=== PATIENT | female | born 1985 | race Caucasian/White ===

== ENCOUNTER 2016-07-28 20:22 | Emergency (ER) | payer MEDICAID ==
[2016-07-28] MEDS ORDERED: AMOXIL 500 MG PO ONE (21:37)
[2016-07-28] MEDS ORDERED: AMOXIL 500 MG ONE (21:41)
--- NOTE | 2016-07-28 21:41 | ERPHSYRPT ---
- History of Present Illness Time Seen by Provider: 07/28/16 21:31 Source: patient Physician History: CC: sore throat Hx: Sore throat, worse on right, red. No fever. Hurts to swallow. She was on bactrim for skin infections but had to stop due to hives. She has an infected finger still on right. She has hx of strep throat. LMP- depo provera. No meds. She is a smoker and is interested in quitting. Severity: moderate ENT Location: throat Allergies/Adverse Reactions: No Known Drug Allergies Allergy (Verified 02/20/16 12:00) Home Medications: Amoxicillin 1 mg PO BID 02/29/16 [History] - Review of Systems Constitutional: No Fever, No Chills Eyes: No Symptoms Ears, Nose, & Throat: Throat Pain Respiratory: No Cough Abdominal/Gastrointestinal: No Vomiting, No Diarrhea Skin: No Rash - Past Medical History Pertinent Past Medical History: Yes (skin infections) - Social History Smoking Status: Current every day smoker Exposure to second hand smoke: No - Physical Exam General Appearance: alert Eye Exam: bilateral eye: PERRL, EOMI Ear Exam: bilateral ear: TM normal Nasal Exam: normal inspection Throat Exam: moist mucus membranes (red throat), No pharynx swelling, No tonsillar exudate Neck Exam: normal inspection, non-tender, supple Cardiovascular/Respiratory Exam: normal breath sounds, regular rate/rhythm Neurologic Exam: alert, oriented x 3, cooperative Skin Exam: warm, dry, No rash - Course Nursing assessment & vital signs reviewed: Yes - Progress Progress Note: 07/28/16 21:39 She chose empiric abtx for pharyngitis. She wants to stop smoking and RT gave information packet. Counseled pt/family regarding: diagnosis, need for follow-up - Departure Time of Disposition: 21:40 Departure Disposition: Home Clinical Impression: Acute pharyngitis, Smoker Condition: Stable Critical Care Time: No Referrals: MERON HARTMAN [Primary Care Provider] - Instructions: Pharyngitis/Tonsillopharyngitis -- Adult, Quit Smoking Additional Instructions: SORE THROAT 1. If you are prescribed antibiotics, you should finish the entire prescription as directed. 2. Many sore throats are caused by viruses and antibiotics will not help. 3. Acetaminophen or Ibuprofen as directed for fever or discomfort. 4. Cool liquids may help the pain of sore throat. Rx amoxil for 10 days. Follow up wit Dr hartman monday. Prescriptions: Amoxicillin [Amoxil] 1 cap PO TID #29 capsule
[2016-07-28 21:45] VITALS: O2SAT 98
[2016-07-28 22:15] VITALS: BP 134/82; PULSE 84
== END 2016-07-28 22:15 | disposition home or self-care (01) ==
LOC: ED 20:22
DX: J02.9 Acute pharyngitis, unspecified (principal); F17.200 Nicotine dependence, unspecified, uncomplicated
CPT/HCPCS: 99282; 99283; A9270-GY

== ENCOUNTER 2016-11-20 03:04 | Emergency (ER) | payer MEDICAID ==
[2016-11-20] MEDS ORDERED: Pepcid 20 MG VIAL IV ONE ×2 (03:24→03:52)
[2016-11-20] MEDS ORDERED: BENADRYL 50 MG/ML IV ONE ×2 (03:24→04:43)
[2016-11-20] MEDS ORDERED: Hydromorphone 1 mg/ml Ampule IV ONE ×2 (03:24→04:43)
[2016-11-20] MEDS ORDERED: Sodium Chloride 0.9% 1000 ML 1,000 ML IV STA (03:24)
--- NOTE | 2016-11-20 03:29 | ERPHSYRPT ---
- History of Present Illness Time Seen by Provider: 11/20/16 03:20 Historian: patient Patient Subjective Stated Complaint: pt states she woke up with pain from epigastric into her back. states the pain in her back feels like spasming Triage Nursing Assessment: pt alert and oriented, answers questions approp. pt ambualtory with steady gait noted. respirations nonlabored with lungs cta. abd soft and tender with bowel sounds noted. back nontender. Physician History: CC: abd pain hx: 31 y/o patient of Dr Nicole on Depo Provera. She has upper abd pain, severe , radiating to her back. She had a similar pain 2 weeks ago after eating chili beans. Tonite did not eat. Pain severe. She had prior C/S and appendectomy. Allergic to sulfa. Pain sharp, severe. Some nausea last time but not yet tonite. Allergies/Adverse Reactions: sulfamethoxazole [From Bactrim] Allergy (Verified 11/20/16 03:26) trimethoprim [From Bactrim] Allergy (Verified 11/20/16 03:26) Hx Tetanus, Diphtheria Vaccination/Date Given: Yes Hx Influenza Vaccination/Date Given: Yes Hx Pneumococcal Vaccination/Date Given: No Immunizations Up to Date: Yes - Review of Systems Constitutional: Malaise, Weakness, No Fever, No Chills Eyes: No Symptoms Ears, Nose, & Throat: No Symptoms Respiratory: No Cough, No Dyspnea Cardiac: No Chest Pain Abdominal/Gastrointestinal: Abdominal Pain, No Nausea, No Vomiting, No Diarrhea Genitourinary Symptoms: No Dysuria Skin: No Rash Neurological: No Headache All Other Systems: Reviewed and Negative - Past Medical History Pertinent Past Medical History: Yes (skin infections) GI Medical History: GERD - Past Surgical History Past Surgical History: Yes Gastrointestinal: Appendectomy Female Surgical History: Section - Social History Smoking Status: Current every day smoker How long have you smoked: 7 Exposure to second hand smoke: Yes Drug Use: none Patient Lives Alone: No - Female History Hx Last Menstrual Period: 2 mos - Nursing Vital Signs Nursing Vital Signs: Initial Vital Signs Temperature 97.7 F 11/20/16 03:11 Pulse Rate 103 H 11/20/16 03:11 Respiratory Rate 18 11/20/16 03:11 Blood Pressure 121/71 11/20/16 03:11 Pain Scale Pain Intensity [] 10 Pain Intensity 0 - Physical Exam General Appearance: alert, obese, other (tearful) Eye Exam: PERRL/EOMI, No scleral icterus Ears, Nose, Throat Exam: normal ENT inspection, moist mucous membranes Neck Exam: normal inspection, non-tender, supple Respiratory Exam: normal breath sounds Cardiovascular Exam: regular rate/rhythm Gastrointestinal/Abdomen Exam: soft, tenderness (severe RUQ with caal's sign, epigastric tender), guarding, No mass Back Exam: normal inspection, No CVA tenderness Extremity Exam: normal inspection, normal range of motion Neurologic Exam: alert, oriented x 3, cooperative, sensation nml, No motor deficits Skin Exam: warm, dry, No rash Oxygen Delivery: Room Air - Course Nursing assessment & vital signs reviewed: Yes - Radiology Exams AAS X-ray Interpretation: Reviewed by me, Negative Ordered Tests: Active Orders 24 hr Category Date Time Status IV Insertion STAT Care 11/20/16 03:24 Active OBSTR/ACUTE ABDOMEN SERIES Stat Exams 11/20/16 03:25 Ordered CBC W DIFF Stat Lab 11/20/16 03:47 Completed CMP Stat Lab 11/20/16 03:47 Completed HCG QUALITATIVE,SERUM Stat Lab 11/20/16 03:47 Completed LIPASE Stat Lab 11/20/16 03:47 Completed Medication Summary Discontinued Medications Generic Name Dose Route Start Last Admin Trade Name Freq PRN Reason Stop Dose Admin Diphenhydramine HCl 25 mg 11/20/16 03:24 11/20/16 03:55 Benadryl 50 Mg/Ml IV 11/20/16 03:25 25 mg STAT ONE Administration Diphenhydramine HCl Confirm 11/20/16 03:52 Benadryl 50 Mg/Ml Administered 11/20/16 03:53 Dose 50 mg .ROUTE .STK-MED ONE Diphenhydramine HCl 25 mg 11/20/16 04:43 Benadryl 50 Mg/Ml IV 11/20/16 04:44 STAT ONE Famotidine 20 mg 11/20/16 03:24 11/20/16 04:00 Pepcid 20 Mg Vial IV 11/20/16 03:25 20 mg STAT ONE Administration Famotidine Confirm 11/20/16 03:52 Pepcid 20 Mg Vial Administered 11/20/16 03:53 Dose 20 mg IV .STK-MED ONE Hydromorphone HCl 1 mg 11/20/16 03:24 11/20/16 03:55 Hydromorphone 1 Mg/Ml Ampule IV 11/20/16 03:25 1 mg STAT ONE Administration Hydromorphone HCl Confirm 11/20/16 03:52 Hydromorphone 1 Mg/Ml Ampule Administered 11/20/16 03:53 Dose 1 mg .ROUTE .STK-MED ONE Hydromorphone HCl 1 mg 11/20/16 04:43 Hydromorphone 1 Mg/Ml Ampule IV 11/20/16 04:44 STAT ONE Sodium Chloride 1,000 mls @ 999 mls/hr 11/20/16 03:24 11/20/16 03:55 Sodium Chloride 0.9% 1000 Ml IV 11/20/16 04:24 999 mls/hr .Q1H1M STA Administration Sodium Chloride Confirm 11/20/16 03:53 Sodium Chloride 0.9% 1000 Ml Administered 11/20/16 03:54 Dose 1,000 mls @ ud .ROUTE .STK-MED ONE Lab/Rad Data: Laboratory Result Diagrams 11/20/16 03:47 11/20/16 03:47 Laboratory Results 11/20/16 11/20/16 11/20/16 Range/Units 03:47 03:47 03:47 WBC 9.3 (4.0-10.5) K/mm3 RBC 4.76 (4.1-5.4) M/mm3 Hgb 11.5 L (12.0-16.0) gm/dl Hct 37.6 (35-47) % MCV 79.0 (78-100) fl MCH 24.1 L (26-32) pg MCHC 30.6 L (32-36) g/dl RDW 15.3 H (11.5-14.0) % Plt Count 294 (150-450) K/mm3 MPV 10.7 H (6-9.5) fl Gran % 60.3 (36.0-66.0) % Lymphocytes % 26.9 (24.0-44.0) % Monocytes % 6.3 (0.0-12.0) % Eosinophils % 6.0 H (0.00-5.0) % Basophils % 0.5 (0.0-0.4) % Basophils # 0.05 (0-0.4) Sodium 144 (136-145) mEq/L Potassium 3.7 (3.5-5.1) mEq/L Chloride 108 H (98-107) mEq/L Carbon Dioxide 25.3 (21-32) mEq/L Anion Gap 14.8 (5-15) MEQ/L BUN 10 (9-20) mg/dL Creatinine 0.76 (0.55-1.30) mg/dl Estimated GFR > 60 ML/MIN Glucose 103 (70-110) MG/DL Calcium 8.9 (8.5-10.1) mg/dL Total Bilirubin 0.40 (0.2-1.0) mg/dL AST 11 L (15-37) U/L ALT 11 L (12-78) U/L Alkaline Phosphatase 75 (46-116) U/L Serum Total Protein 6.9 (6.4-8.2) gm/dL Albumin 3.2 L (3.4-5.0) g/dL Lipase 125 (73-393) U/L Serum , Qual NEGATIVE (Negative) - Progress Progress Note: 11/20/16 04:47 The patient is improved with meds. This is almost certainly billiary colic. Will release with instr. No sign of acute cholecysitis on labs, no fever. Advised follow up tomorrow to arrange GC sonogram. Counseled pt/family regarding: lab results, diagnosis, need for follow-up, rad results - Departure Time of Disposition: 04:48 Departure Disposition: Home Clinical Impression: Biliary colic, RUQ abdominal pain Condition: Stable Critical Care Time: No Referrals: MERON NICOLE [Primary Care Provider] - Instructions: General Gallbladder Conditions, Fat-Restricted Diet Additional Instructions: No driving today. [place] diet. Call to see Dr Nicole office tomorrow to arrange gallbladder sonogram. Tylenol if needed for discomfort. Rx prilosec. Return for high fever, uncontrolled pain, recurrent vomiting, or concerns. Prescriptions: Omeprazole 20 MG [Prilosec 20 mg] 20 mg PO DAILY #30 capsule.
[2016-11-20] MEDS ORDERED: BENADRYL 50 MG/ML ONE ×3 (03:52→04:50)
[2016-11-20] MEDS ORDERED: Hydromorphone 1 mg/ml Ampule ONE ×3 (03:52→04:51)
[2016-11-20] MEDS ORDERED: Sodium Chloride 0.9% 1000 ML 1,000 ML ONE (03:53)
[2016-11-20 03:58] LABS: BASOPHIL % 0.5 % (0.0-0.4); Granulocytes % 60.3 % (36.0-66.0); Lymphocytes % 26.9 % (24.0-44.0); Mean Platelet Volume 10.7 fl (6-9.5); Monocytes % 6.3 % (0.0-12.0); Platelet Count 294 K/mm3 (150-450); Red Blood Count 4.76 M/mm3 (4.1-5.4); Red Cell Distribution Width 15.3 % (11.5-14.0); White Blood Count 9.3 K/mm3 (4.0-10.5)
[2016-11-20 04:05] LABS: Mean Corpuscular Hemoglobin 24.1 pg (26-32)
[2016-11-20 04:13] VITALS: BP 100/61; PULSE 83; O2SAT 99
[2016-11-20 04:16] LABS: ALBUMIN 3.2 g/dL (3.4-5.0); ALKALINE PHOSPHATASE 75 U/L (46-116); ANION GAP 14.8 MEQ/L (5-15); BLOOD UREA NITROGEN 10 mg/dL (9-20); CHLORIDE 108 mEq/L (98-107); Carbon Dioxide 25.3 mEq/L (21-32); Glucose 103 MG/DL (70-110); LIPASE 125 U/L (73-393); Potassium 3.7 mEq/L (3.5-5.1); SGOT/AST 11 U/L (15-37); SGPT/ALT 11 U/L (12-78); SODIUM 144 mEq/L (136-145); Total Protein 6.9 gm/dL (6.4-8.2)
--- NOTE | 2016-11-20 09:14 | XRAY ---
Indication: Upper abdominal and back pain. Comparison: None 2 views of the abdomen nonacute and nonobstructed. Solid organs and osseous structures unremarkable. Single PA chest demonstrates normal heart, lungs, and bony thorax. Impression: Negative abdomen. Normal 1 view chest.
== END 2016-11-20 05:45 | disposition home or self-care (01) ==
LOC: ED 03:04
DX: K80.50 Calculus of bile duct without cholangitis or cholecystitis without obstruction (principal); R10.11 Right upper quadrant pain
CPT/HCPCS: 36000; 36415; 74022; 80053; 83690; 84703; 85025; 96360; 96374; 96375; 99284; J1170; J1200

== ENCOUNTER 2017-06-20 21:25 | Emergency (ER) | payer OTHER ==
[2017-06-20] MEDS ORDERED: Sodium Chloride 0.9% 1000 ML 1,000 ML IV STA (21:45)
[2017-06-20] MEDS ORDERED: TORAdol 30 mg Injection IV ONE (21:45)
[2017-06-20] MEDS ORDERED: Cyclobenzaprine 10 MG PO ONE (21:45)
[2017-06-20] MEDS ORDERED: Zofran 4 MG/2 ML VIAL IV ONE (21:45)
--- NOTE | 2017-06-20 21:52 | ERPHSYRPT ---
- History of Present Illness Time Seen by Provider: 06/20/17 21:34 Source: patient Exam Limitations: no limitations Patient Subjective Stated Complaint: Stiff neck at midline, no injury. Triage Nursing Assessment: Pt presents to the ED with complaints of neck pain, sudden onset at 1730. Denies known injury, denies hx of complaint. Pt is able to put chin to neck slowly. Pt states headache x3 months. No dsitress noted, no other complaints. Physician History: 32 y/o female with history of migraine headache comes to the ER with complaints of stiff neck since 5:30pm this evening. Pt states that she was siting down and had sudden onset neck pain. Pt describes the pain as aching, constant, as high as a 6/10, worse with lateral movement and pt has taken any pain meds. Pt also admits to starting to develop a migraine headache but she says the headache is currently mild. Pt mentions she vomited once. No known injury to her neck. Pt arrives with a temperature of 99.1 and tachycardic at 108. Pt also says that she is seeing squiggly lines. Timing/Duration: today Quality: aching Head Pain Location: occipital Severity of Pain-Max: moderate Severity of Pain-Current: moderate Recent Head Trauma: no recent headache/trauma Associated Symptoms: nausea/vomiting, stiff neck, No sensitive to light, No speech problems Previous symptoms: no prior history Allergies/Adverse Reactions: sulfamethoxazole [From Bactrim] Allergy (Verified 11/20/16 03:26) trimethoprim [From Bactrim] Allergy (Verified 11/20/16 03:26) Hx Tetanus, Diphtheria Vaccination/Date Given: No Hx Influenza Vaccination/Date Given: No Hx Pneumococcal Vaccination/Date Given: No Immunizations Up to Date: No - Review of Systems Constitutional: No Fever, No Chills Eyes: No Symptoms Ears, Nose, & Throat: No Symptoms Respiratory: No Cough, No Dyspnea Cardiac: No Chest Pain, No Edema, No Syncope Abdominal/Gastrointestinal: No Abdominal Pain, No Nausea, No Vomiting, No Diarrhea Genitourinary Symptoms: No Dysuria Musculoskeletal: Neck Pain, No Back Pain Skin: No Rash Neurological: Headache, No Dizziness, No Focal Weakness, No Sensory Changes Psychological: No Symptoms, No Alcohol Abuse, No Drug Abuse, No Anxiety Endocrine: No Symptoms All Other Systems: Reviewed and Negative - Past Medical History Pertinent Past Medical History: Yes (skin infections) GI Medical History: GERD - Past Surgical History Past Surgical History: Yes Gastrointestinal: Appendectomy, Cholecystectomy Female Surgical History: Section - Social History Smoking Status: Current every day smoker How long have you smoked: 9 years Exposure to second hand smoke: No Drug Use: none Patient Lives Alone: No - Female History Hx Now: No - Nursing Vital Signs Nursing Vital Signs: Initial Vital Signs Temperature 99.1 F 06/20/17 21:30 Pulse Rate 114 H 06/20/17 21:30 Respiratory Rate 18 06/20/17 21:30 Blood Pressure 126/82 06/20/17 21:30 O2 Sat by Pulse Oximetry 98 06/20/17 21:30 Pain Scale Pain Intensity 3 - Physical Exam General Appearance: mild distress Eye Exam: PERRL/EOMI Ears, Nose, Throat Exam: normal ENT inspection, moist mucous membranes Neck Exam: normal inspection, supple, midline tenderness, No non-tender, No meningismus, No Brudzinski, No Kernig's, No lymphadenopathy Respiratory Exam: normal breath sounds, lungs clear Cardiovascular Exam: regular rate/rhythm, normal heart sounds Gastrointestinal/Abdominal Exam: soft, No tenderness, No distention Back Exam: normal inspection, normal range of motion, No vertebral tenderness Mental Status Exam: alert, oriented x 3, cooperative iridologist Exam: normal speech, PERRL, No facial droop Coordination/Gait Exam: normal cerebellar function Motor/Sensory Exam: no motor deficit, no sensory deficit Skin Exam: normal color, warm, dry, No rash SpO2: 98 Oxygen Delivery: Room Air - Course Nursing assessment & vital signs reviewed: Yes Ordered Tests: Active Orders 24 hr Category Date Time Status IV Insertion STAT Care 06/20/17 21:44 Active CERVICAL SPINE WO CONTRAST [CT] Stat Exams 06/20/17 21:46 Taken CHEST 2 VIEWS (PA AND LAT) Stat Exams 06/20/17 22:47 Taken HEAD WITHOUT CONTRAST [CT] Stat Exams 06/20/17 21:46 Taken BLOOD CULTURE Stat Lab 06/20/17 22:15 Received CBC W DIFF Stat Lab 06/20/17 22:14 Completed CK-Creatinine Phosphokinase Stat Lab 06/20/17 22:14 Completed CMP Stat Lab 06/20/17 22:14 Completed CULTURE, THROAT Stat Lab 06/20/17 22:15 Received Erythrocyte Sedimentation Rate Stat Lab 06/20/17 22:14 Completed HCG,QUALITATIVE SERUM Stat Lab 06/20/17 22:00 Completed Lactic Acid Stat Lab 06/20/17 21:55 Completed [place] Screen Stat Lab 06/20/17 22:14 Completed PROTIME WITH INR Stat Lab 06/20/17 22:14 Completed PTT Stat Lab 06/20/17 22:14 Completed STREP SCREEN-BETA A Stat Lab 06/20/17 22:15 Completed UA W/RFX UR CULTURE Stat Lab 06/20/17 21:43 Ordered Medication Summary Discontinued Medications Generic Name Dose Route Start Last Admin Trade Name Freq PRN Reason Stop Dose Admin Cyclobenzaprine HCl 10 mg 06/20/17 21:45 06/20/17 22:00 Cyclobenzaprine 10 Mg PO 06/20/17 21:46 10 mg STAT ONE Administration Cyclobenzaprine HCl Confirm 06/20/17 21:58 Cyclobenzaprine 10 Mg Administered 06/20/17 21:59 Dose 10 mg .ROUTE .STK-MED ONE Sodium Chloride 1,000 mls @ 999 mls/hr 06/20/17 21:45 06/20/17 22:01 Sodium Chloride 0.9% 1000 Ml IV 06/20/17 22:45 999 mls/hr .Q1H1M STA Administration Sodium Chloride Confirm 06/20/17 21:58 Sodium Chloride 0.9% 1000 Ml Administered 06/20/17 21:59 Dose 1,000 mls @ ud .ROUTE .STK-MED ONE Ketorolac Tromethamine 30 mg 06/20/17 21:45 06/20/17 22:00 Toradol 30 Mg Injection IV 06/20/17 21:46 30 mg STAT ONE Administration Ketorolac Tromethamine Confirm 06/20/17 21:58 Toradol 30 Mg Injection Administered 06/20/17 21:59 Dose 30 mg .ROUTE .STK-MED ONE Ondansetron HCl 4 mg 06/20/17 21:45 06/20/17 22:01 Zofran 4 Mg/2 Ml Vial IV 06/20/17 21:46 4 mg STAT ONE Administration Ondansetron HCl Confirm 06/20/17 21:58 Zofran 4 Mg/2 Ml Vial Administered 06/20/17 21:59 Dose 4 mg .ROUTE .STK-MED ONE Lab/Rad Data: Laboratory Result Diagrams 06/20/17 22:14 06/20/17 22:14 Laboratory Results 06/20/17 06/20/17 06/20/17 Range/Units 22:15 22:14 22:14 WBC (4.0-10.5) K/mm3 RBC (4.1-5.4) M/mm3 Hgb (12.0-16.0) gm/dl Hct (35-47) % MCV (78-100) fl MCH (26-32) pg MCHC (32-36) g/dl RDW (11.5-14.0) % Plt Count (150-450) K/mm3 MPV (6-9.5) fl Gran % (36.0-66.0) % Eos # (Auto) (0-0.5) Absolute Lymphs (auto) (1.0-4.6) Absolute Monos (auto) (0.0-1.3) Lymphocytes % (24.0-44.0) % Monocytes % (0.0-12.0) % Eosinophils % (0.00-5.0) % Basophils % (0.0-0.4) % Absolute Granulocytes (1.4-6.9) Basophils # (0-0.4) ESR (0-20) mm/hr PT 11.9 (9.95-12.35) SECONDS INR 1.07 (0.8-3.0) APTT 33.3 (25.3-37.0) SECONDS Sodium (137-145) mmol/L Potassium (3.5-5.1) mmol/L Chloride (98-107) mmol/L Carbon Dioxide (22-30) mmol/L Anion Gap (5-15) MEQ/L BUN (7-17) mg/dL Creatinine (0.52-1.04) mg/dL Estimated GFR ML/MIN Glucose (74-106) mg/dL Lactic Acid (0.4-2.0) Calcium (8.4-10.2) mg/dL Total Bilirubin (0.2-1.3) mg/dL AST (14-36) U/L ALT (0-35) U/L Alkaline Phosphatase (38-126) U/L Creatine Kinase (30-135) U/L Serum Total Protein (6.3-8.2) g/dL Albumin (3.5-5.0) g/dL Serum HCG, Qual (Negative) Monoscreen NEGATIVE (Negative) Streptococcus Screen NEGATIVE (Negative) 06/20/17 06/20/17 06/20/17 Range/Units 22:14 22:14 22:00 WBC 10.6 H (4.0-10.5) K/mm3 RBC 4.63 (4.1-5.4) M/mm3 Hgb 11.8 L (12.0-16.0) gm/dl Hct 37.6 (35-47) % MCV 81.2 (78-100) fl MCH 25.4 L (26-32) pg MCHC 31.4 L (32-36) g/dl RDW 15.1 H (11.5-14.0) % Plt Count 281 (150-450) K/mm3 MPV 10.4 H (6-9.5) fl Gran % 65.7 (36.0-66.0) % Eos # (Auto) 0.41 (0-0.5) Absolute Lymphs (auto) 2.55 (1.0-4.6) Absolute Monos (auto) 0.65 (0.0-1.3) Lymphocytes % 24.0 (24.0-44.0) % Monocytes % 6.1 (0.0-12.0) % Eosinophils % 3.9 (0.00-5.0) % Basophils % 0.3 (0.0-0.4) % Absolute Granulocytes 6.98 H (1.4-6.9) Basophils # 0.03 (0-0.4) ESR 31 H (0-20) mm/hr PT (9.95-12.35) SECONDS INR (0.8-3.0) APTT (25.3-37.0) SECONDS Sodium 143 (137-145) mmol/L Potassium 3.7 (3.5-5.1) mmol/L Chloride 108 H (98-107) mmol/L Carbon Dioxide 23 (22-30) mmol/L Anion Gap 15.7 H (5-15) MEQ/L BUN 11 (7-17) mg/dL Creatinine 0.68 (0.52-1.04) mg/dL Estimated GFR > 60.0 ML/MIN Glucose 118 H (74-106) mg/dL Lactic Acid (0.4-2.0) Calcium 9.7 (8.4-10.2) mg/dL Total Bilirubin 0.20 (0.2-1.3) mg/dL AST 16 (14-36) U/L ALT 22 (0-35) U/L Alkaline Phosphatase 75 (38-126) U/L Creatine Kinase 42 (30-135) U/L Serum Total Protein 7.2 (6.3-8.2) g/dL Albumin 3.9 (3.5-5.0) g/dL Serum HCG, Qual NEGATIVE (Negative) Monoscreen (Negative) Streptococcus Screen (Negative) 06/20/17 Range/Units 21:55 WBC (4.0-10.5) K/mm3 RBC (4.1-5.4) M/mm3 Hgb (12.0-16.0) gm/dl Hct (35-47) % MCV (78-100) fl MCH (26-32) pg MCHC (32-36) g/dl RDW (11.5-14.0) % Plt Count (150-450) K/mm3 MPV (6-9.5) fl Gran % (36.0-66.0) % Eos # (Auto) (0-0.5) Absolute Lymphs (auto) (1.0-4.6) Absolute Monos (auto) (0.0-1.3) Lymphocytes % (24.0-44.0) % Monocytes % (0.0-12.0) % Eosinophils % (0.00-5.0) % Basophils % (0.0-0.4) % Absolute Granulocytes (1.4-6.9) Basophils # (0-0.4) ESR (0-20) mm/hr PT (9.95-12.35) SECONDS INR (0.8-3.0) APTT (25.3-37.0) SECONDS Sodium (137-145) mmol/L Potassium (3.5-5.1) mmol/L Chloride (98-107) mmol/L Carbon Dioxide (22-30) mmol/L Anion Gap (5-15) MEQ/L BUN (7-17) mg/dL Creatinine (0.52-1.04) mg/dL Estimated GFR ML/MIN Glucose (74-106) mg/dL Lactic Acid 1.1 (0.4-2.0) Calcium (8.4-10.2) mg/dL Total Bilirubin (0.2-1.3) mg/dL AST (14-36) U/L ALT (0-35) U/L Alkaline Phosphatase (38-126) U/L Creatine Kinase (30-135) U/L Serum Total Protein (6.3-8.2) g/dL Albumin (3.5-5.0) g/dL Serum HCG, Qual (Negative) Monoscreen (Negative) Streptococcus Screen (Negative) - Progress Progress: improved Progress Note: 06/20/17 23:38 Pt feels better after receiving toradol and flexeril. Pt has better range of motion of neck. Pt has a barely elevated white count of 10.9. ESR is slightly elevated but her HR has come down to the 80's and repeat temperature is 98.2. CT scan head and CT cervical spine are both within normal limits. I have advised the patient to return to the ER if she should have any fever, chills, worsening headache, neck pain, nausea or vomiting. Pt will be sent home on toradol and flexeril for neck spasm. - Departure Time of Disposition: 23:41 Departure Disposition: Home Clinical Impression: Neck muscle spasm Condition: Stable Critical Care Time: No Referrals: MERON CRUZ [Primary Care Provider] - Instructions: Cervical Muscle Strain (DC) Additional Instructions: Return to the ER if you should continue to have neck pain, stiffness, headache, fever, chills, nausea or vomiting. Prescriptions: Cyclobenzaprine HCl [Flexeril] 5 mg PO TID PRN #15 tablet PRN Reason: Muscle Spasms Ketorolac Tromethamine [Toradol] 10 mg PO QID PRN #20 tablet PRN Reason: Pain
[2017-06-20 21:57] VITALS: O2SAT 98
[2017-06-20] MEDS ORDERED: Zofran 4 MG/2 ML VIAL ONE (21:58)
[2017-06-20] MEDS ORDERED: Cyclobenzaprine 10 MG ONE (21:58)
[2017-06-20] MEDS ORDERED: TORAdol 30 mg Injection ONE (21:58)
[2017-06-20] MEDS ORDERED: Sodium Chloride 0.9% 1000 ML 1,000 ML ONE (21:58)
[2017-06-20 22:19] LABS: BASOPHIL % 0.3 % (0.0-0.4); Basophil (Absolute #) 0.03 (0-0.4); Eosinophil % 3.9 % (0.00-5.0); Eosinophil (Absolute #) 0.41 (0-0.5); Granulocyte Absolute (ANC) 6.98 (1.4-6.9); Granulocytes % 65.7 % (36.0-66.0); Hematocrit 37.6 % (35-47); Hemoglobin 11.8 gm/dl (12.0-16.0); Lymphocyte (Absolute #) 2.55 (1.0-4.6); Mean Cell Volume 81.2 fl (78-100); Mean Corpuscular Hgb Concent. 31.4 g/dl (32-36); Mean Platelet Volume 10.4 fl (6-9.5); Monocyte (Absolute #) 0.65 (0.0-1.3); Monocytes % 6.1 % (0.0-12.0); Platelet Count 281 K/mm3 (150-450); Red Blood Count 4.63 M/mm3 (4.1-5.4); Red Cell Distribution Width 15.1 % (11.5-14.0); White Blood Count 10.6 K/mm3 (4.0-10.5)
[2017-06-20 22:26] LABS: ALBUMIN 3.9 g/dL (3.5-5.0); ALKALINE PHOSPHATASE 75 U/L (38-126); ANION GAP 15.7 MEQ/L (5-15); BLOOD UREA NITROGEN 11 mg/dL (7-17); CHLORIDE 108 mmol/L (98-107); CK-Creatinine Phosphokinase 42 U/L (30-135); Calcium 9.7 mg/dL (8.4-10.2); Carbon Dioxide 23 mmol/L (22-30); Creatinine 1 0.68 mg/dL (0.52-1.04); Glucose 118 mg/dL (74-106); Mean Corpuscular Hemoglobin 25.4 pg (26-32); Potassium 3.7 mmol/L (3.5-5.1); SGOT/AST 16 U/L (14-36); SGPT/ALT 22 U/L (0-35); SODIUM 143 mmol/L (137-145); Total Protein 7.2 g/dL (6.3-8.2)
[2017-06-20 22:33] LABS: INR 1.07 (0.8-3.0)
[2017-06-20 22:36] LABS: PTT 33.3 SECONDS (25.3-37.0)
[2017-06-20 22:51] LABS: Erythrocyte Sedimentation Rate 31 mm/hr (0-20)
[2017-06-20 23:44] VITALS: BP 165/96; PULSE 85
--- NOTE | 2017-06-21 08:51 | XRAY ---
Indication: Cough and headache. Comparison: November 20, 2016. PA/lateral chest again demonstrates normal heart, lungs, and bony thorax with a few incidental calcified granulomas.
--- NOTE | 2017-06-21 08:51 | XRAY ---
Indication: Headache and neck pain. Multiple contiguous axial images obtained through the head without contrast. Comparison: None. Normal appearing brain parenchyma, ventricles, and bony calvarium. Visualized paranasal sinuses and mastoid air cells are clear. Impression: Normal CT head without contrast exam. Comment: Preliminary interpretation was made by [facility]. No discrepancy. CTDI 66.12
--- NOTE | 2017-06-21 08:55 | XRAY ---
Indication: Headache and neck pain. Multiple contiguous axial images obtained through the cervical spine. Sagittal and coronal reformatted images obtained. Comparison: None. Axial images negative for acute fracture, suspicious bony lesions, or spinal canal stenosis. Sagittal and coronal reformatted images demonstrates cervical lordotic reversal, positional versus paraspinal muscular spasm. Disc spaces maintained. No acute compression fracture, subluxation, or jumped facet. Normal appearing craniocervical junction. Visualized noncontrasted soft tissues demonstrates scattered small centimeter/subcentimeter cervical lymph nodes. Visualized lung apices unremarkable. CT head reported separately. Impression: Cervical lordotic reversal, positional versus paraspinal spasm. Remaining CT cervical spine is negative. Comment: Preliminary interpretation was made by [facility]. No discrepancy. CTDI 140.55
== END 2017-06-20 23:51 | disposition home or self-care (01) ==
LOC: ED 21:25
DX: M54.2 Cervicalgia (principal); M62.838 Other muscle spasm; R51 Headache; R11.2 Nausea with vomiting, unspecified
CPT/HCPCS: 36000; 36415; 70450; 71046; 72125; 80053; 82550; 83605; 84703; 85025; 85610; 85652; 85730; 86140; 86308; 87040; 87070; 87430; 96360; 96374; 96375; 99283; 99284; J1885; J2405; A9270-GY

== ENCOUNTER 2018-02-11 14:44 | Emergency (ER) | payer OTHER ==
--- NOTE | 2018-02-11 15:31 | ERPHSYRPT ---
- History of Present Illness Time Seen by Provider: 02/11/18 15:13 Source: patient Exam Limitations: no limitations Patient Subjective Stated Complaint: pt reports that she has a throbbing generalized headache x 4 days, states that after sexual intercourse she experiences a sharp shooting pain to the base of the skull that radiates upward. pt also reports nausea and occasionally seeing spots in her field of vision. reports the pain is sudden and intense, states last night she passed out from the pain. pt reports there is a possilbity of . Triage Nursing Assessment: pt is aox3, pupils perrl, speech is clear, resps easy and non labored, radial pulses strong and equal, no edema appreciated. skin is pink warm dry. Physician History: The patient is a 32-year-old obese female who is a poor historian complaining that she has headaches every day of her life since she was a teenager. She's had a generalized headache for 4 days. She has taken Advil at night and is able to go to sleep. She now has some nausea. she was seen in this ER on for 1017 for a headache and a stiff neck. She was given Flexeril orally and Toradol by IM which helped her headache and neck pain in June. Today she is now out of Advil and wants relief. She is not sure if she is . She has been on Depakote and hasn't had a period for 2 years, until 2 weeks ago. She had some neck pain last night and became sweaty and lightheaded. The neck pain is pinpoint and hurts sometimes when she moves her head. Timing/Duration: day(s) (4), constant Quality: aching Head Pain Location: global Severity of Pain-Max: mild Severity of Pain-Current: mild Recent Head Trauma: chronic headaches Modifying Factors: Improves With: medication (advil) Associated Symptoms: nausea/vomiting, neck pain, No stiff neck Previous symptoms: same symptoms as today Allergies/Adverse Reactions: sulfamethoxazole [From Bactrim] Allergy (Verified 11/20/16 03:26) trimethoprim [From Bactrim] Allergy (Verified 11/20/16 03:26) Hx Tetanus, Diphtheria Vaccination/Date Given: Yes Hx Influenza Vaccination/Date Given: No Hx Pneumococcal Vaccination/Date Given: No Immunizations Up to Date: Yes - Review of Systems Constitutional: No Fever, No Chills Eyes: No Symptoms Ears, Nose, & Throat: No Symptoms Respiratory: No Cough, No Dyspnea Cardiac: No Chest Pain, No Edema, No Syncope Abdominal/Gastrointestinal: Nausea, Vomiting Genitourinary Symptoms: No Dysuria Musculoskeletal: No Back Pain, No Neck Pain Skin: No Rash Neurological: Headache Psychological: No Symptoms Endocrine: No Symptoms Hematologic/Lymphatic: No Symptoms Immunological/Allergic: No Symptoms All Other Systems: Reviewed and Negative - Past Medical History Pertinent Past Medical History: Yes (skin infections) Neurological History: Migraines GI Medical History: GERD Psycho-Social History: Depression - Past Surgical History Past Surgical History: Yes Gastrointestinal: Appendectomy, Cholecystectomy Female Surgical History: Section - Social History Smoking Status: Current every day smoker How long have you smoked: 9 years Exposure to second hand smoke: No Drug Use: none Patient Lives Alone: No - Female History Hx Last Menstrual Period: 01/28/18 Hx Now: (unk) - Nursing Vital Signs Nursing Vital Signs: Initial Vital Signs Temperature 98.6 F 02/11/18 14:47 Pulse Rate 105 H 02/11/18 14:47 Respiratory Rate 18 02/11/18 14:47 Blood Pressure 166/109 02/11/18 14:47 O2 Sat by Pulse Oximetry 97 02/11/18 14:47 Pain Scale Pain Intensity 6 - Physical Exam General Appearance: no apparent distress, obese Eye Exam: PERRL/EOMI Ears, Nose, Throat Exam: normal ENT inspection, moist mucous membranes Neck Exam: full range of motion (pt can easily move her neck in all directions.) , other (mild tenderness to palpation of left base of skull), No limited range of motion Respiratory Exam: normal breath sounds, lungs clear Cardiovascular Exam: regular rate/rhythm, normal heart sounds Gastrointestinal/Abdominal Exam: soft, No tenderness, No distention Back Exam: normal inspection, normal range of motion Extremity Exam: normal inspection Mental Status Exam: alert, oriented x 3, cooperative solo musician Exam: normal speech, PERRL, No facial droop Coordination/Gait Exam: normal cerebellar function Motor/Sensory Exam: no motor deficit, no sensory deficit Skin Exam: normal color, warm, dry, No rash SpO2 Interpretation: normal SpO2: 97 Oxygen Delivery: Room Air - Radiology Exams C-Spine X-ray Interpretation: Interpreted by me, Negative, No Fracture, No Subluxation, Other (reversal of normal lordosis of C-spine.) Ordered Tests: Active Orders 24 hr Category Date Time Status IV Insertion STAT Care 02/11/18 17:13 Active CERVICAL SPINE (2 OR 3 VIEW) Stat Exams 02/11/18 16:20 Taken HCG,QUALITATIVE URINE Stat Lab 02/11/18 15:50 Completed Medication Summary Generic Name Dose Route Start Last Admin Trade Name Freq PRN Reason Stop Dose Admin Sodium Chloride 1,000 mls @ 999 mls/hr 02/11/18 17:13 02/11/18 17:30 Sodium Chloride 0.9% 1000 Ml IV 02/11/18 18:13 999 mls/hr .Q1H1M STA Administration Discontinued Medications Generic Name Dose Route Start Last Admin Trade Name Freq PRN Reason Stop Dose Admin Sodium Chloride Confirm 02/11/18 17:25 Sodium Chloride 0.9% 1000 Ml Administered 02/11/18 17:26 Dose 1,000 mls @ ud .ROUTE .STK-MED ONE Ketorolac Tromethamine 30 mg 02/11/18 17:13 02/11/18 17:31 Toradol 30 Mg Injection IV 02/11/18 17:14 30 mg STAT ONE Administration Ketorolac Tromethamine Confirm 02/11/18 17:25 Toradol 30 Mg Injection Administered 02/11/18 17:26 Dose 30 mg .ROUTE .STK-MED ONE Promethazine HCl 25 mg 02/11/18 17:14 02/11/18 17:30 Phenergan 25 Mg Inj IV 02/11/18 17:15 25 mg STAT ONE Administration Promethazine HCl Confirm 02/11/18 17:25 Phenergan 25 Mg Inj Administered 02/11/18 17:26 Dose 25 mg .ROUTE .STK-MED ONE Lab/Rad Data: Laboratory Results 02/11/18 Range/Units 15:50 Urine HCG, Qual NEGATIVE (Negative) - Progress Progress: improved Progress Note: 02/11/18 15:58 After examining the patient's neck and noting mild tenderness to the left skull base, I'm informed patient that this neck pain was likely muscular in nature. She said she was relieved. She thought she might of had a brain bleed since she was a youngster and that this was causing her daily headaches. I also asked the patient if she had seen her primary medical doctor since her last ER visit in June. The patient told me that she had seen the nurse practitioner. She also told me that when she goes to see her primary medical doctor that he does not really address her high blood pressure readings at that time. I informed her that her blood pressure currently is fine while I was in the room with her and I was looking directly at the BP monitor that showed 140s/ 80s. We talked about the possibility of her being and I informed her that I would perform a test on urine. She was agreeable to everything we had discussed. I was told by the nurses that the patient thought I was rude and made her cry about this discussion. 02/11/18 16:46 I reviewed the head CT and C-spine CT performed on 06/20/17. No acute findings were noted in either study. Based upon the fact the patient has had chronic headaches for decades and neck pain in the past, I declined to do an emergent head and neck CT today. Instead the plain film C-spine will be done. 02/11/18 17:54 Pt given toradol 30 mg and phenergan 25 mg IV and immediately feeling better. Asking when she can go home. Blood Culture(s) Obtained: No Antibiotics given: No Counseled pt/family regarding: lab results, diagnosis, rad results - Departure Time of Disposition: 17:55 Departure Disposition: Home Clinical Impression: Headache, Neck muscle spasm Condition: Stable Critical Care Time: No Referrals: MERON NICOLE [Primary Care Provider] - Additional Instructions: You have a headache and neck muscle spasms. You were given Toradol 30 mg, Phenergan 25 mg, and fluids by IV in the ER. You may take Flexeril 5 mg every 8 hours as needed. Follow-up with Dr. Nicole for further evaluation of your chronic headaches. Prescriptions: Cyclobenzaprine HCl [Flexeril] 5 mg PO Q8H PRN PRN #10 tablet PRN Reason: Moderate Pain
[2018-02-11] MEDS ORDERED: TORAdol 30 mg Injection IV ONE (17:13)
[2018-02-11] MEDS ORDERED: Sodium Chloride 0.9% 1000 ML 1,000 ML IV STA (17:13)
[2018-02-11] MEDS ORDERED: Phenergan 25 MG INJ IV ONE (17:14)
[2018-02-11] MEDS ORDERED: Sodium Chloride 0.9% 1000 ML 1,000 ML ONE (17:25)
[2018-02-11] MEDS ORDERED: Phenergan 25 MG INJ ONE (17:25)
[2018-02-11] MEDS ORDERED: TORAdol 30 mg Injection ONE (17:25)
[2018-02-11 18:25] VITALS: BP 126/85; PULSE 90; O2SAT 100
--- NOTE | 2018-02-11 19:15 | XRAY ---
Indication: Headache. Comparison: CT cervical spine June 20, 2017. 3 views of the cervical spine again demonstrates reversal of the cervical lordosis. Vertebral body heights and disc spaces maintained. No new/acute bony, articular, or soft tissue abnormalities.
== END 2018-02-11 18:23 | disposition home or self-care (01) ==
LOC: ED 14:44
DX: R51 Headache (principal); R11.2 Nausea with vomiting, unspecified; M54.2 Cervicalgia; M62.830 Muscle spasm of back
CPT/HCPCS: 36000; 72040; 84703; 96360; 96374; 96375; 99284; J1885; J2550

== ENCOUNTER 2019-08-12 02:18 | Day surgery (SDC) | payer OTHER ==
[2019-08-12] MEDS ORDERED: Sodium Chloride 0.9% 1000 ML 1,000 ML IV STA (02:47)
[2019-08-12] MEDS ORDERED: MORPHINE SULFATE 4 MG INJ IV ONE (02:47)
[2019-08-12] MEDS ORDERED: Pepcid 20 MG VIAL IV ONE ×2 (02:47→03:22)
--- NOTE | 2019-08-12 02:52 | ERPHSYRPT ---
- History of Present Illness Time Seen by Provider: 08/12/19 02:40 Historian: patient Physician History: 34 years old morbidly obese female presented in the ER with chief complaint of sudden onset epigastric/right upper quadrant pain with radiation to the back, moderate to severe intensity, sharp stabbing in nature, continuous, aggravated with movements palpation, no significant relieving factor, associated with nausea but no vomiting. Patient report having similar symptoms in the past as well. Denies any fever chills or chest pain/shortness of breath. Timing/Duration: yesterday, sudden, worse Activities at Onset: rest Quality: sharpness, stabbing Abdominal Pain Onset Location: RUQ, epigastric Pain Radiation: back Severity of Pain-Max: severe Severity of Pain-Current: severe Modifying Factors: Improves With: movement Associated Symptoms: nausea Previous symptoms: same symptoms as today Allergies/Adverse Reactions: sulfamethoxazole [From Bactrim] Allergy (Verified 11/20/16 03:26) trimethoprim [From Bactrim] Allergy (Verified 11/20/16 03:26) Hx Tetanus, Diphtheria Vaccination/Date Given: Yes Hx Influenza Vaccination/Date Given: No Hx Pneumococcal Vaccination/Date Given: No - Review of Systems Constitutional: No Symptoms Eyes: No Symptoms Ears, Nose, & Throat: No Symptoms Respiratory: No Symptoms Cardiac: No Symptoms Abdominal/Gastrointestinal: Abdominal Pain, Nausea Genitourinary Symptoms: No Symptoms Musculoskeletal: No Symptoms Skin: No Symptoms Neurological: No Symptoms Psychological: No Symptoms Endocrine: No Symptoms Hematologic/Lymphatic: No Symptoms Immunological/Allergic: No Symptoms - Past Medical History Pertinent Past Medical History: Yes (skin infections) Neurological History: Migraines GI Medical History: GERD Psycho-Social History: Depression - Past Surgical History Past Surgical History: Yes Gastrointestinal: Appendectomy, Cholecystectomy Female Surgical History: Section - Social History Smoking Status: Current every day smoker How long have you smoked: 9 years Exposure to second hand smoke: No Drug Use: none Patient Lives Alone: No - Nursing Vital Signs Nursing Vital Signs: Initial Vital Signs Temperature 98.7 F 08/12/19 02:44 Pulse Rate 103 H 08/12/19 02:44 Respiratory Rate 17 08/12/19 02:44 Blood Pressure 120/93 08/12/19 02:44 O2 Sat by Pulse Oximetry 98 08/12/19 02:44 Pain Scale Pain Intensity 0 - Physical Exam General Appearance: mild distress, alert Eye Exam: PERRL/EOMI, eyes nml inspection Ears, Nose, Throat Exam: normal ENT inspection, pharynx normal Neck Exam: normal inspection, non-tender, supple, full range of motion Respiratory Exam: normal breath sounds, lungs clear, No chest tenderness Cardiovascular Exam: regular rate/rhythm, normal heart sounds Gastrointestinal/Abdomen Exam: soft, tenderness, guarding (Epigastric/right upper quadrant positive Mena sign) Back Exam: No CVA tenderness Extremity Exam: normal inspection, normal range of motion Neurologic Exam: alert, oriented x 3, cooperative Skin Exam: normal color SpO2 Interpretation: normal O2 Delivery: Room Air Ordered Tests: Active Orders 24 hr Category Date Time Status IV Insertion STAT Care 08/12/19 02:47 Active Isolation, Initiate & Maintain Q12H Care 08/12/19 02:53 Active ABDOMEN AND PELVIS W CONTRAST [CT] Stat Exams 08/12/19 02:48 Taken AMYLASE Stat Lab 08/12/19 03:03 Completed CBC W DIFF Stat Lab 08/12/19 03:03 Completed CMP Stat Lab 08/12/19 03:03 Completed HCG,QUALITATIVE URINE Stat Lab 08/12/19 03:04 Completed LIPASE Stat Lab 08/12/19 03:03 Completed UA W/RFX UR CULTURE Stat Lab 08/12/19 03:04 Completed Medication Summary Generic Name Dose Route Start Last Admin Trade Name Freq PRN Reason Stop Dose Admin Sodium Chloride 1,000 mls @ 125 mls/hr 08/12/19 05:15 08/12/19 05:20 Sodium Chloride 0.9% 1000 Ml IV 09/11/19 05:14 125 mls/hr .Q8H SHAKIRA Administration Discontinued Medications Generic Name Dose Route Start Last Admin Trade Name Freq PRN Reason Stop Dose Admin Famotidine 20 mg 08/12/19 02:47 08/12/19 03:23 Pepcid 20 Mg Vial IV 08/12/19 02:48 20 mg STAT ONE Administration Famotidine Confirm 08/12/19 03:22 Pepcid 20 Mg Vial Administered 08/12/19 03:23 Dose 20 mg IV .STK-MED ONE Hydromorphone HCl 1 mg 08/12/19 05:04 08/12/19 05:18 Hydromorphone 1 Mg/Ml Ampule IV 08/12/19 05:05 1 mg STAT ONE Administration Hydromorphone HCl Confirm 08/12/19 05:12 Hydromorphone 1 Mg/Ml Ampule Administered 08/12/19 05:13 Dose 1 mg .ROUTE .STK-MED ONE Sodium Chloride 1,000 mls @ 999 mls/hr 08/12/19 02:47 08/12/19 03:24 Sodium Chloride 0.9% 1000 Ml IV 08/12/19 03:47 999 mls/hr .Q1H1M STA Administration Sodium Chloride Confirm 08/12/19 03:22 Sodium Chloride 0.9% 1000 Ml Administered 08/12/19 03:23 Dose 1,000 mls @ ud .ROUTE .STK-MED ONE Piperacillin Sod/Tazobactam 100 mls @ 200 mls/hr 08/12/19 05:05 08/12/19 05: 19 Sod 3.375 gm/ Sodium Chloride IV 08/12/19 05:34 200 mls/hr STAT ONE Administration Sodium Chloride Confirm 08/12/19 05:13 Sodium Chloride 100ml Mini-Bag Plus Administered 08/12/19 05:14 Dose 100 mls @ ud IV .STK-MED ONE Morphine Sulfate 4 mg 08/12/19 02:47 08/12/19 03:23 Morphine Sulfate 4 Mg Inj IV 08/12/19 02:48 4 mg STAT ONE Administration Morphine Sulfate Confirm 08/12/19 03:22 Morphine Sulfate 4 Mg Inj Administered 08/12/19 03:23 Dose 4 mg .ROUTE .STK-MED ONE Ondansetron HCl 4 mg 08/12/19 02:47 08/12/19 03:23 Zofran 4 Mg/2 Ml Vial IV 08/12/19 02:48 4 mg STAT ONE Administration Ondansetron HCl Confirm 08/12/19 03:22 Zofran 4 Mg/2 Ml Vial Administered 08/12/19 03:23 Dose 4 mg .ROUTE .STK-MED ONE Piperacillin Sod/Tazobactam Sod Confirm 08/12/19 05:12 Zosyn 3.375 Gm Vial Administered 08/12/19 05:13 Dose 3.375 gm IV .STK-MED ONE Lab/Rad Data: Laboratory Result Diagrams 08/12/19 03:03 08/12/19 03:03 Laboratory Results 08/12/19 08/12/19 08/12/19 Range/Units 03:04 03:04 03:03 WBC (4.0-10.5) K/mm3 RBC (4.1-5.4) M/mm3 Hgb (12.0-16.0) gm/dl Hct (35-47) % MCV (78-100) fl MCH (26-32) pg MCHC (32-36) g/dl RDW (11.5-14.0) % Plt Count (150-450) K/mm3 MPV (7.5-11.0) fl Gran % (36.0-66.0) % Eos # (Auto) (0-0.5) Absolute Lymphs (auto) (1.0-4.6) Absolute Monos (auto) (0.0-1.3) Lymphocytes % (24.0-44.0) % Monocytes % (0.0-12.0) % Eosinophils % (0.00-5.0) % Basophils % (0.0-0.4) % Absolute Granulocytes (1.4-6.9) Basophils # (0-0.4) Sodium 138 (137-145) mmol/L Potassium 3.9 (3.5-5.1) mmol/L Chloride 104 (98-107) mmol/L Carbon Dioxide 26 (22-30) mmol/L Anion Gap 11.9 (5-15) MEQ/L BUN 12 (7-17) mg/dL Creatinine 0.61 (0.52-1.04) mg/dL Estimated GFR > 60.0 ML/MIN Glucose 111 H (74-106) mg/dL Calcium 9.6 (8.4-10.2) mg/dL Total Bilirubin 0.50 (0.2-1.3) mg/dL AST 18 (14-36) U/L ALT 16 (0-35) U/L Alkaline Phosphatase 79 (38-126) U/L Serum Total Protein 7.6 (6.3-8.2) g/dL Albumin 4.1 (3.5-5.0) g/dL Amylase 73 (30-110) U/L Lipase 72 (23-300) U/L Urine Color YELLOW (YELLOW) Urine Appearance CLEAR (CLEAR) Urine pH 6.0 (5-6) Ur Specific [place] 1.019 (1.005-1.025) Urine Protein NEGATIVE (Negative) Urine Ketones NEGATIVE (NEGATIVE) Urine Blood NEGATIVE (0-5) Jose/ul Urine Nitrite NEGATIVE (NEGATIVE) Urine Bilirubin NEGATIVE (NEGATIVE) Urine Urobilinogen 2 (0-1) mg/dL Ur Leukocyte Esterase NEGATIVE (NEGATIVE) Urine WBC (Auto) 0-2 (0-5) /HPF Urine RBC (Auto) 3-5 (0-2) /HPF U Epithel Cells (Auto) RARE (FEW) /HPF Urine Bacteria (Auto) NONE SEEN (NEGATIVE) /HPF Urine Mucus (Auto) SLIGHT (NEGATIVE) /HPF Urine Culture Reflexed NO (NO) Urine Glucose NEGATIVE (NEGATIVE) mg/dL Urine HCG, Qual NEGATIVE (Negative) 08/12/19 Range/Units 03:03 WBC 9.9 (4.0-10.5) K/mm3 RBC 5.04 (4.1-5.4) M/mm3 Hgb 14.6 (12.0-16.0) gm/dl Hct 41.6 (35-47) % MCV 82.5 (78-100) fl MCH 29.0 (26-32) pg MCHC 35.1 (32-36) g/dl RDW 15.0 H (11.5-14.0) % Plt Count 305 (150-450) K/mm3 MPV 10.4 (7.5-11.0) fl Gran % 63.6 (36.0-66.0) % Eos # (Auto) 0.42 (0-0.5) Absolute Lymphs (auto) 2.47 (1.0-4.6) Absolute Monos (auto) 0.70 (0.0-1.3) Lymphocytes % 24.8 (24.0-44.0) % Monocytes % 7.0 (0.0-12.0) % Eosinophils % 4.2 (0.00-5.0) % Basophils % 0.4 (0.0-0.4) % Absolute Granulocytes 6.31 (1.4-6.9) Basophils # 0.04 (0-0.4) Sodium (137-145) mmol/L Potassium (3.5-5.1) mmol/L Chloride (98-107) mmol/L Carbon Dioxide (22-30) mmol/L Anion Gap (5-15) MEQ/L BUN (7-17) mg/dL Creatinine (0.52-1.04) mg/dL Estimated GFR ML/MIN Glucose (74-106) mg/dL Calcium (8.4-10.2) mg/dL Total Bilirubin (0.2-1.3) mg/dL AST (14-36) U/L ALT (0-35) U/L Alkaline Phosphatase (38-126) U/L Serum Total Protein (6.3-8.2) g/dL Albumin (3.5-5.0) g/dL Amylase (30-110) U/L Lipase (23-300) U/L Urine Color (YELLOW) Urine Appearance (CLEAR) Urine pH (5-6) Ur Specific [place] (1.005-1.025) Urine Protein (Negative) Urine Ketones (NEGATIVE) Urine Blood (0-5) Jose/ul Urine Nitrite (NEGATIVE) Urine Bilirubin (NEGATIVE) Urine Urobilinogen (0-1) mg/dL Ur Leukocyte Esterase (NEGATIVE) Urine WBC (Auto) (0-5) /HPF Urine RBC (Auto) (0-2) /HPF U Epithel Cells (Auto) (FEW) /HPF Urine Bacteria (Auto) (NEGATIVE) /HPF Urine Mucus (Auto) (NEGATIVE) /HPF Urine Culture Reflexed (NO) Urine Glucose (NEGATIVE) mg/dL Urine HCG, Qual (Negative) - Progress Progress: improved, pain not gone completely, re-examined Progress Note: 08/12/19 06:40 34 years old is evaluated for epigastric/right upper quadrant pain. She is given IV fluids and pain medication which did help with the pain but is not completely improved. She has a normal white count, grossly unremarkable chemistries. I have obtained CT with contrast which showed gallbladder wall thickening with mild edema surrounding without any visible calculus suggesting acute cholecystitis. She is given a dose of Zosyn as well. I have discussed with Dr. Dunne, agreed with evaluation and cholecystectomy. Since we do not have any beds available in the hospital for admission, patient would be kept in the ER for couple of hours and then would be taken to same-day surgery for cholecystectomy. Plan discussed with the patient in detail who seems understanding. Discussed with Dr.: Sofiya Will see patient in: other (Same day surgery) Counseled pt/family regarding: lab results, diagnosis, rad results - Departure Departure Disposition: Release to OR/CAC Clinical Impression: Acute cholecystitis Condition: Stable Critical Care Time: Yes Critical Care Time(excluding separately billable procedures): Critical 30-74 mins Referrals: MERON CRUZ [Primary Care Provider] -
[2019-08-12 03:06] LABS: Absolute Neutrophil Ct (ANC) 6.31 (1.4-6.9); BASOPHIL % 0.4 % (0.0-0.4); Basophil (Absolute #) 0.04 (0-0.4); Eosinophil % 4.2 % (0.00-5.0); Eosinophil (Absolute #) 0.42 (0-0.5); Hematocrit 41.6 % (35-47); Hemoglobin 14.6 gm/dl (12.0-16.0); Lymphocyte (Absolute #) 2.47 (1.0-4.6); Lymphocytes % 24.8 % (24.0-44.0); Mean Cell Volume 82.5 fl (78-100); Mean Corpuscular Hgb Concent. 35.1 g/dl (32-36); Mean Platelet Volume 10.4 fl (7.5-11.0); Neutrophil % 63.6 % (36.0-66.0); Platelet Count 305 K/mm3 (150-450); Red Blood Count 5.04 M/mm3 (4.1-5.4); White Blood Count 9.9 K/mm3 (4.0-10.5)
[2019-08-12 03:12] LABS: Appearance CLEAR (CLEAR); Bilirubin NEGATIVE (NEGATIVE); Blood NEGATIVE Ery/ul (0-5); Epithelial Cells RARE /HPF (FEW); Glucose NEGATIVE (NEGATIVE); Ketones NEGATIVE (NEGATIVE); Leukocyte Esterase NEGATIVE (NEGATIVE); Mucus SLIGHT /HPF (NEGATIVE); Nitrite NEGATIVE (NEGATIVE); Protein,Urine Dip NEGATIVE (Negative); Specific Gravity 1.019 (1.005-1.025); Urobilinogen 2 mg/dL (0-1); WBC 0-2 /HPF (0-5)
[2019-08-12 03:13] LABS: Bacteria NONE SEEN /HPF (NEGATIVE)
[2019-08-12 03:18] LABS: ALBUMIN 4.1 g/dL (3.5-5.0); ALKALINE PHOSPHATASE 79 U/L (38-126); AMYLASE 73 U/L (30-110); ANION GAP 11.9 MEQ/L (5-15); BLOOD UREA NITROGEN 12 mg/dL (7-17); CHLORIDE 104 mmol/L (98-107); Calcium 9.6 mg/dL (8.4-10.2); Carbon Dioxide 26 mmol/L (22-30); Creatinine 1 0.61 mg/dL (0.52-1.04); Glucose 111 mg/dL (74-106); LIPASE 72 U/L (23-300); Potassium 3.9 mmol/L (3.5-5.1); SGOT/AST 18 U/L (14-36); SGPT/ALT 16 U/L (0-35); SODIUM 138 mmol/L (137-145); Total Protein 7.6 g/dL (6.3-8.2)
[2019-08-12] MEDS ORDERED: Sodium Chloride 0.9% 1000 ML 1,000 ML ONE ×2 (03:22→05:13)
[2019-08-12] MEDS ORDERED: MORPHINE SULFATE 4 MG INJ ONE (03:22)
[2019-08-12] MEDS ORDERED: Zofran 4 MG/2 ML VIAL ONE ×4 (03:22→17:52)
[2019-08-12] MEDS: Zofran 4 MG/2 ML VIAL IV ONE ×2 (03:23→17:53)
[2019-08-12] MEDS ORDERED: Hydromorphone 1 mg/ml Ampule IV ONE (05:04)
[2019-08-12] MEDS ORDERED: Zosyn 3.375 GM Vial 3.375 GM in Sodium Chloride 100ML MINI-BAG PLUS 100 ML IV ONE (05:05)
[2019-08-12] MEDS ORDERED: Hydromorphone 1 mg/ml Ampule ONE (05:12)
[2019-08-12] MEDS ORDERED: Zosyn 3.375 GM Vial IV ONE (05:12)
[2019-08-12] MEDS ORDERED: Sodium Chloride 100ML MINI-BAG PLUS 100 ML IV ONE (05:13)
[2019-08-12] MEDS ORDERED: Sodium Chloride 0.9% 1000 ML 1,000 ML IV SCH (05:15)
[2019-08-12] MEDS ORDERED: BENADRYL 50 MG/ML IV ONE ×2 (06:40→11:51)
[2019-08-12] MEDS ORDERED: BENADRYL 50 MG/ML ONE ×2 (06:59→11:52)
[2019-08-12] MEDS ORDERED: Quelicin Fliptop 200 MG/10 ML IV ONE (08:14)
[2019-08-12] MEDS ORDERED: Zemuron 100 MG/10 ML IV ONE (08:14)
--- NOTE | 2019-08-12 09:21 | XRAY ---
Indication: Abdomen pain. Multiple contiguous axial images obtained through the abdomen and pelvis using 80 cc Isovue 370 contrast only. Comparison: None Lung bases are clear. Heart is not enlarged. Noncontrasted stomach and bowel loops appear nonobstructed. Appendix not seen. No free fluid/air. Gallbladder mildly distended without gallstones. Query borderline gallbladder wall thickening. 2 cm left mid renal cortical cyst. Remaining liver, gallbladder, pancreas, spleen, adrenal glands, kidneys, ureters, bladder, uterus, and aorta appear unremarkable. No pathologic retroperitoneal lymphadenopathy. Osseous structures intact. No ventral or inguinal hernias. Impression: 1. Mild distended gallbladder without gallstones. Query borderline wall thickening. Gallbladder sonogram may yield further information. 2. Left renal cyst. Comment: Preliminary interpretation was made by [facility]. No critical discrepancy.
[2019-08-12] MEDS ORDERED: MEFOXIN 2 GM PREMIX** 2 GM/50 ML ML IV SCH (10:00)
[2019-08-12] MEDS ORDERED: DILAUDID 2 MG INJECTION IV STA ×2 (11:32→16:46)
[2019-08-12] MEDS ORDERED: BENADRYL 50 MG/ML IV PRN (11:55)
--- NOTE | 2019-08-12 12:49 | HP ---
DATE OF SURGERY: 08/12/2019 HISTORY OF PRESENT ILLNESS: I was consulted from the emergency department. The patient is a 34 year-old morbid obese female who had some intermittent aches a couple times a week the past month but pain last night started worsening and failed to resolve and came into the emergency department. Epigastric right upper quadrant pain associated with some nausea failed to improve. No fever or chills. PAST MEDICAL HISTORY: Anxiety, depression, migraines, reflux in the past. Morbid obesity. PAST SURGICAL HISTORY: Appendectomy in the past. section in the past. MEDICATIONS: She is not on any regular medications. ALLERGIES: BACTRIM. FAMILY HISTORY: Heart disease. SOCIAL HISTORY: Smokes a pack a day, denies alcohol abuse. Smokes marijuana once in a while. REVIEW OF SYSTEMS: Fourteen systems reviewed per admission assessment. No chest pain or palpitations. Other systems negative or noncontributory as above and per preadmission questionnaire. PHYSICAL EXAMINATION: GENERAL: A morbidly obese female. Moist mucous membranes. HEENT: Sclerae nonicteric. NECK: No JVD. CHEST: Equal excursion, nonlabored breathing. CVS: Regular rate and rhythm. SKIN: Dry and intact. ABDOMEN: Morbidly obese, soft. Tender epigastrium right upper quadrant. No rebound currently. EXTREMITIES: No cyanosis. NEURO: Alert, oriented, moving extremities symmetrically. No gross motor deficits noted. IMPRESSION: Acute epigastric right upper quadrant pain. She has stranding and thickening of the gallbladder wall consistent with cholecystitis. There are no gross stones. I was told by the emergency room doctor this patient did have cholelithiasis. It sounds like she does have inflammation on the CT scan and does not appear to have calcified gallstones on the CT scan. Otherwise, acute epigastric right upper quadrant pain question acute exacerbation of chronic cholecystitis possible acute cholecystitis. Liver function test within normal limits. Her white count was 9. Lipase is normal. Given her persistent intractable pain she was discussed options of checking an ultrasound and/or HIDA versus proceeding with cholecystectomy. Given the wall thickening and stranding suspicious for cholecystitis on CT scan, the patient prefers to go ahead and proceed with cholecystectomy. She was explained the procedure risks in detail but not included to bleeding or infection, risk of trocar injury or hernia, risk of bowel, bladder or blood vessel injury, risk of bile leak, bile duct injury, retained stone or sludge possibly requiring further procedure either open or ERCP, general risk of anesthesia, deep venous thrombosis, pulmonary embolism, pneumonia, perioperative risk of aches, pains, bloating, constipation and/or loose stools possibly chronic in nature, possibility of needing an open procedure, possibility of ERCP for retained stone or sludge, possibility of bile duct injury or bile leak, possibility that this procedure may not improve her symptoms. She may need further work up and/or testing, endoscopy, other studies or procedures. She understands and agrees to the planned procedure, will proceed with laparoscopic cholecystectomy possible open when OR time available.
[2019-08-12] MEDS ORDERED: Xylocaine-Mpf 2% 5 Ml Vial ONE (13:35)
[2019-08-12] MEDS ORDERED: Zemuron 100 MG/10 ML ONE (13:35)
[2019-08-12] MEDS ORDERED: Decadron 4 MG INJ ONE (13:35)
[2019-08-12] MEDS ORDERED: BRIDION 200MG/2ML IV ONE (13:35)
[2019-08-12] MEDS ORDERED: TORAdol 30 mg Injection ONE ×2 (13:35→15:14)
[2019-08-12] MEDS ORDERED: DIPRIVAN 200 MG/20 ML IV ONE (13:35)
[2019-08-12] MEDS ORDERED: Quelicin Fliptop 200 MG/10 ML ONE (13:35)
[2019-08-12] MEDS ORDERED: SUBLIMAZE 100 MCG/2 ML ONE ×3 (13:35→14:51)
[2019-08-12] MEDS ORDERED: Sensorcaine 0.25% 10 ML ONE (14:19)
[2019-08-12] MEDS ORDERED: Lactated Ringers 1,000 ML IV ONE (14:19)
[2019-08-12] MEDS ORDERED: MORPHINE SULFATE 10 MG/ML ONE (14:51)
[2019-08-12] MEDS ORDERED: Nubain 10 MG/ML IV ONE (17:04)
[2019-08-12 17:50] VITALS: BP 132/75; PULSE 62; O2SAT 92
[2019-08-12] MEDS ORDERED: Zofran 4 MG/2 ML VIAL IV STA (17:51)
--- NOTE | 2019-08-13 11:44 | OP ---
SURGERY DATE/TIME: 08/12/2019 1333 PREOPERATIVE DIAGNOSES: 1) Acute exacerbation of chronic cholecystitis. 2) Morbid obesity. POSTOPERATIVE DIAGNOSES: 1) Acute exacerbation of chronic cholecystitis and cholelithiasis. 2) Morbid obesity. PROCEDURE: Laparoscopic cholecystectomy. SURGEON: Dr. Topher To. ANESTHESIA: General. ESTIMATED BLOOD LOSS: Minimal. INDICATIONS: As noted above. Risks and benefits explained in detail but not limited to and consent was obtained. DESCRIPTION OF PROCEDURE AND FINDINGS: The patient was taken to the operating room. General anesthesia induced. Abdomen had been prepped and draped in the usual sterile fashion. After official time out and no disagreement with planned procedure, a transverse incision made at the supraumbilical area. Fascia grasped and pulled upward. Veress needle inserted and tested with saline. Pneumoperitoneum accomplished insufflating opening pressure of 0-15. A 5 mm bladeless port and camera inserted without difficulty. Unfortunately, the initial cord on laparoscopic equipment failed to work. It took some time but finally new camera was obtained. At this time we had adequate light to proceed. The bladeless port and camera were inserted without difficulty supraumbilical site. Two - 5 mm right upper quadrant ports placed and 11 mm epigastric port. There was no evidence of any intra-abdominal injury secondary to trocar insertion. Otherwise the gallbladder grasped retracted over the edge of the liver and laterally away from Calot's triangle dissecting posterior, lateral to anterior fashion. The main cystic artery isolated until the critical view obtained both anteriorly and posteriorly. The main cystic artery isolated, clipped x3 and divided in usual fashion. She had extensive inflammatory reaction. She had extensive inflammatory reaction, acute exacerbation of chronic cholecystitis. Slowly and carefully cystic duct and infundibular area slowly and carefully well skeletonized until the critical view obtained both anteriorly and posteriorly. The cystic duct was then clipped x3 and divided in the usual fashion. Gallbladder slowly and carefully dissected free from its dense attachment to liver bed, clipping additional oozing side branches off the cystic artery directly on the gallbladder wall as necessary. Just prior to releasing from final attachments to the anterior edge of the liver, the liver bed re-inspected. Clips noted in place in cystic duct and cystic artery stump. No signs of any active bleeding or bile leakage. It was felt there was no benefit in drain placement. Gallbladder released from final attachments to anterior edge of the liver. The gallbladder is pulled up into epigastrium decompressed of some bile and pulled free. She was noted to have a moderate sized stone although no calcified stone shown on the CT scan. She did have a moderate sized stone. It was able to be pulled free and passed off. Liver bed re-inspected. Clips noted in place cystic duct and cystic artery stumps. No signs of any active bleeding or bile leakage. It was felt there was no benefit from drain placement. Pneumoperitoneum was decompressed. The wound irrigated out. Skin incision closed with 4-0 Vicryl. Steri-Strips and sterile dressing applied. 0.25% Marcaine local injected along the skin incision fascial defect. The patient tolerated the procedure well. There were no immediate complications. There was no family available to discuss the findings with at this time.
== END 2019-08-12 18:10 | disposition home or self-care (01) ==
LOC: ED 02:18 → SDC 08:13
PROVIDERS: ATTEND Surgery
DX: K80.10 Calculus of gallbladder with chronic cholecystitis without obstruction (principal); E66.01 Morbid (severe) obesity due to excess calories
CPT/HCPCS: 36000; 36415; 74177; 80053; 81001; 82150; 83690; 84703; 85025; 96360; 96361; 96365; 96374; 96375; 99285; 99291; J0330; J0694; J1100; J1170; J1200; J1885; J2270; J2300; J2405; J2704; J3010; L0625

== ENCOUNTER 2020-05-24 20:17 | Emergency (ER) | payer OTHER ==
--- NOTE | 2020-05-24 20:37 | ERPHSYRPT ---
- History of Present Illness Time Seen by Provider: 05/24/20 20:30 Source: patient Exam Limitations: no limitations Physician History: pt twisted left ankle under body while getting up from recliner yesterday, Did not fall. notes sweling and persisting pain - prior fx same ankle at age 18 with chronic symptoms. no hx DVT , recent hosp, or surgeries, or hormonal Tx. Calves nontender neg homans and no edema. swollen tender left lateral malleolus reproduces pain exactly with palpation. Method of Injury: twisted Occurred: yesterday Quality: sharpness, throbbing Severity of Pain-Max: moderate Severity of Pain-Current: moderate Lower Extremities Pain: ankle: left Modifying Factors: Improves With: movement Associated Symptoms: snapping sensation, popping sensation Allergies/Adverse Reactions: sulfamethoxazole [From Bactrim] Allergy (Verified 08/12/19 08:46) trimethoprim [From Bactrim] Allergy (Verified 08/12/19 08:46) Home Medications: No Reportable Medications [No Reported Medications] 05/24/20 [History] Hx Tetanus, Diphtheria Vaccination/Date Given: Yes Hx Influenza Vaccination/Date Given: No Hx Pneumococcal Vaccination/Date Given: No - Review of Systems Constitutional: No Fever, No Chills Eyes: No Symptoms Ears, Nose, & Throat: No Symptoms Respiratory: No Cough, No Dyspnea Cardiac: No Chest Pain, No Edema, No Syncope Abdominal/Gastrointestinal: No Abdominal Pain, No Nausea, No Vomiting, No Diarrhea Genitourinary Symptoms: No Dysuria Musculoskeletal: Injury, Joint Pain, Joint Swelling, No Back Pain, No Neck Pain Skin: No Symptoms, No Rash Neurological: No Dizziness, No Focal Weakness, No Sensory Changes Psychological: No Symptoms Endocrine: No Symptoms Hematologic/Lymphatic: No Symptoms Immunological/Allergic: No Symptoms All Other Systems: Reviewed and Negative - Past Medical History Pertinent Past Medical History: Yes (skin infections) Neurological History: Migraines ENT History: No Pertinent History Cardiac History: No Pertinent History Respiratory History: No Pertinent History Endocrine Medical History: No Pertinent History Musculoskeletal History: No Pertinent History GI Medical History: GERD History: No Pertinent History Psycho-Social History: No Pertinent History Female Reproductive Disorders: No Pertinent History - Past Surgical History Past Surgical History: Yes Neuro Surgical History: No Pertinent History Cardiac: No Pertinent History Respiratory: No Pertinent History Gastrointestinal: Appendectomy Genitourinary: No Pertinent History Musculoskeletal: No Pertinent History Female Surgical History: Section - Social History Smoking Status: Current every day smoker How long have you smoked: 9 years Exposure to second hand smoke: No Drug Use: marijuana Patient Lives Alone: No - Nursing Vital Signs Nursing Vital Signs: Initial Vital Signs Temperature 98.3 F 05/24/20 20:22 Pulse Rate 115 H 05/24/20 20:22 Respiratory Rate 16 05/24/20 20:22 Blood Pressure 136/115 05/24/20 20:22 O2 Sat by Pulse Oximetry 98 05/24/20 20:22 Pain Scale Pain Intensity 6 - Physical Exam General Appearance: alert Eyes, Ears, Nose, Throat Exam: moist mucous membranes Neck Exam: non-tender, supple Cardiovascular/Respiratory Exam: chest non-tender, normal breath sounds, regular rate/rhythm, no respiratory distress Gastrointestinal/Abdominal Exam: non-tender, guarding Back Exam: normal inspection, No vertebral tenderness Hips Exam: bilateral: non-tender, normal inspection, normal range of motion, no evidence of injury Legs Exam: bilateral leg: non-tender, normal inspection, normal range of motion, no evidence of injury Knees Exam: bilateral knee: non-tender, normal inspection, normal range of motion, no evidence of injury Ankle Exam: right ankle: non-tender, normal inspection, normal range of motion, no evidence of injury, left ankle: bone tenderness, joint effusion, limited range of motion, pain, soft tissue tenderness, swelling Foot Exam: bilateral foot: non-tender, normal inspection, normal range of motion, no evidence of injury DTR - Lower Extremities Exam: knee (R): 2+, knee (L): 2+, ankle (R): 2+, ankle (L): 2+ Neuro/Tendon Exam: normal sensation, normal motor functions, normal tendon functions Mental Status Exam: alert, oriented x 3, cooperative Skin Exam: normal color, warm, dry SpO2 Interpretation: normal O2 Delivery: Room Air Procedures - Splinting Location of Splint: Left, Ankle Type of Splint: Air Cast Splint Applied By: ED Nurse Pre-Proc Neuro Vasc Exam: normal Post-Proc Neuro Vasc Exam: neurovascular intact, good alignment, unchanged from pre-exam - Course Nursing assessment & vital signs reviewed: Yes - Radiology Exams Left Ankle X-ray Interpretation: Reviewed by me, Other (old calcifation anterior ) Ordered Tests: Active Orders 24 hr Category Date Time Status Cold Application STAT Care 05/24/20 20:22 Active Crutches STAT Care 05/24/20 21:48 Active Splint STAT Care 05/24/20 21:47 Active ANKLE (3 VIEWS) Stat Exams 05/24/20 20:28 Taken Medication Summary Discontinued Medications Generic Name Dose Route Start Last Admin Trade Name Shannon PRN Reason Stop Dose Admin Ketorolac Tromethamine 60 mg 05/24/20 21:10 05/24/20 21:15 Toradol 30 Mg Injection IM 05/24/20 21:11 60 mg STAT ONE Administration Ketorolac Tromethamine Confirm 05/24/20 21:13 Toradol 30 Mg Injection Administered 05/24/20 21:14 Dose 60 mg .ROUTE .[facility]-MED ONE - Progress Progress: improved, re-examined Counseled pt/family regarding: diagnosis, need for follow-up, rad results - Departure Departure Disposition: Home Clinical Impression: Sprain of anterior talofibular ligament of left ankle Condition: Good Critical Care Time: No Referrals: MREON CRUZ [Primary Care Provider] - Instructions: Ankle Sprain (DC) Additional Instructions: followup with Foot[facility]Ankle clinic tomorrow- final x-ray report next week. Although no definitive fracture is seen in prelim reading, there still is likely ligament injury requiring follow-up and possible undetected fracture as well. Return meantime if not improving , increased swelling or redness , numbness or other concerns. followup blood pressure with Dr. hinton.
[2020-05-24] MEDS ORDERED: TORAdol 30 mg Injection IM ONE (21:10)
[2020-05-24] MEDS ORDERED: TORAdol 30 mg Injection ONE (21:13)
[2020-05-24 22:19] VITALS: BP 152/89; PULSE 92; O2SAT 97
--- NOTE | 2020-05-25 08:46 | XRAY ---
Indication: Pain. No known injury. Comparison: None 3 view left ankle demonstrates mild soft tissue swelling, tiny heel spurs, and 8 mm well-circumscribed ossification anterior to distal tibia either degenerative versus sequela to old injury. No other bony, articular, or soft tissue abnormalities. Comment: Preliminary interpretation was made by [facility]. No critical discrepancy.
== END 2020-05-24 22:19 | disposition home or self-care (01) ==
LOC: ED 20:17
DX: S93.492A Sprain of other ligament of left ankle, initial encounter (principal); X50.1XXA Overexertion from prolonged static or awkward postures, initial encounter
CPT/HCPCS: 73610; 96372; 99284; J1885

== ENCOUNTER 2020-11-07 17:47 | Emergency (ER) | payer OTHER ==
[2020-11-07 18:06] VITALS: O2SAT 97
--- NOTE | 2020-11-07 18:19 | ERPHSYRPT ---
- History of Present Illness Time Seen by Provider: 11/07/20 18:15 Source: patient Exam Limitations: no limitations Patient Subjective Stated Complaint: Pt fell down her steps on concrete yesterday injuring her right foot and abrasions up her right falk, pt states that she her foot feels tingly but doesn't have real feeling in it Triage Nursing Assessment: Pt brought to the ER by her family member, tachycardic, rates pain in foot as 7-8/10, has been placing Neosporin on her falk and foot, abrasions all the way down the falk and on the top of the right foot, swollen and red, pt is 5 months and fractured her left foot last month, pt had ultrasound that day and states that the baby is okay, denies any other injury from fall, denies hitting head or losing consciousness Physician History: Patient is a 5-month lady at 35 years of age who fell yesterday causing abrasions to the anterior portion of the right leg ankle and foot. She also has pain and swelling in the ankle and foot. She has been treating it with Neosporin. She is complaining of severe pain. Method of Injury: fell Occurred: yesterday Quality: aching Severity of Pain-Max: moderate Severity of Pain-Current: moderate Lower Extremities Pain: leg: right, foot: right, ankle: right Modifying Factors: Improves With: movement Allergies/Adverse Reactions: sulfamethoxazole [From Bactrim] Allergy (Verified 11/07/20 18:06) trimethoprim [From Bactrim] Allergy (Verified 11/07/20 18:06) Home Medications: Ondansetron ODT 4 MG [Zofran Odt 4 mg] 4 mg PO Q8H PRN PRN 11/07/20 [History] Promethazine HCl 6.25 mg PO BID PRN 11/07/20 [History] Hx Tetanus, Diphtheria Vaccination/Date Given: Yes Hx Influenza Vaccination/Date Given: No Hx Pneumococcal Vaccination/Date Given: No Travel Risk - International Travel Have you traveled outside of the country in past 3 weeks: No - Coronavirus Screening Are you exhibiting any of the following symptoms?: No Close contact with a COVID-19 positive Pt in past 14-21 Days: No - Vaccine Status Have you recieved a Covid-19 vaccination: No - Review of Systems Constitutional: No Fever, No Chills Eyes: No Symptoms Ears, Nose, & Throat: No Symptoms Respiratory: No Cough, No Dyspnea Cardiac: No Chest Pain, No Edema, No Syncope Abdominal/Gastrointestinal: No Abdominal Pain, No Nausea, No Vomiting, No Diarrhea Genitourinary Symptoms: No Dysuria Musculoskeletal: No Back Pain, No Neck Pain Skin: No Rash Neurological: No Dizziness, No Focal Weakness, No Sensory Changes Psychological: No Symptoms Endocrine: No Symptoms All Other Systems: Reviewed and Negative - Past Medical History Pertinent Past Medical History: Yes (skin infections) Neurological History: Migraines ENT History: No Pertinent History Cardiac History: No Pertinent History Respiratory History: No Pertinent History Endocrine Medical History: No Pertinent History Musculoskeletal History: No Pertinent History GI Medical History: GERD History: No Pertinent History Psycho-Social History: No Pertinent History Female Reproductive Disorders: No Pertinent History - Past Surgical History Past Surgical History: Yes Neuro Surgical History: No Pertinent History Cardiac: No Pertinent History Respiratory: No Pertinent History Gastrointestinal: Appendectomy Genitourinary: No Pertinent History Musculoskeletal: No Pertinent History Female Surgical History: Section Other Surgical History: c- section x2 - Social History Smoking Status: Current every day smoker How long have you smoked: 9 years Exposure to second hand smoke: No Drug Use: marijuana Patient Lives Alone: No - Female History Hx Now: Yes Expected Date of Delivery: 03/22/21 - Nursing Vital Signs Nursing Vital Signs: Initial Vital Signs Temperature 97.1 F 11/07/20 17:57 Pulse Rate 128 H 11/07/20 17:57 Blood Pressure 123/84 11/07/20 17:57 O2 Sat by Pulse Oximetry 97 11/07/20 17:57 Pain Scale Pain Intensity 7 - Physical Exam General Appearance: mild distress, alert Eyes, Ears, Nose, Throat Exam: normal ENT inspection Neck Exam: non-tender, supple Cardiovascular/Respiratory Exam: no respiratory distress Gastrointestinal/Abdominal Exam: non-tender (Abdomen is generally nontender there is a gravid uterus present movement has been noted) Back Exam: normal inspection, No vertebral tenderness Legs Exam: right leg: abrasions (Abrasions from knee to foot), bone tenderness, limited range of motion, pain Ankle Exam: right ankle: abrasions/laceration, bone tenderness, joint effusion, limited range of motion, pain Foot Exam: right foot: abrasions/lacerations, limited range of motion, pain, soft tissue tenderness, swelling DTR - Lower Extremities Exam: knee (R): 2+, knee (L): 2+ Neuro/Tendon Exam: normal sensation, normal motor functions Mental Status Exam: alert, oriented x 3, cooperative Skin Exam: normal color, warm, dry SpO2 Interpretation: normal SpO2: 97 O2 Delivery: Room Air - Course Nursing assessment & vital signs reviewed: Yes - Radiology Exams Ankle X-ray Interpretation: Interpreted by me, Negative (Negative for bony injury in the foot and ankle on the right side) Ordered Tests: Active Orders 24 hr Category Date Time Status Dressing Care ROUTINE Care 11/07/20 18:54 Ordered Splint STAT Care 11/07/20 18:53 Ordered ANKLE (2V) Stat Exams 11/07/20 18:12 Taken FOOT (2 VIEWS) Stat Exams 11/07/20 18:12 Taken - Progress Progress: unchanged - Departure Departure Disposition: Home Clinical Impression: Abrasion, right lower leg, initial encounter, Sprain of right ankle Condition: Stable Critical Care Time: No Referrals: MERON CRUZ [Primary Care Provider] - Instructions: Foot Sprain (DC), Wound Care (DC) Prescriptions: Hydrocodone/Acetaminophen [Hydrocodone-Acetamin 5-325 mg] 1 tab PO Q6HPRN PRN 3 Days #12 tablet MDD 4 PRN Reason: Pain
[2020-11-07] MEDS ORDERED: Hydromorphone 1 mg/ml Injection IM ONE (18:54)
[2020-11-07] MEDS ORDERED: Hydromorphone 1 mg/ml Injection ONE (19:05)
[2020-11-07] MEDS ORDERED: BACIGUENT PACKET ONE (19:05)
[2020-11-07] MEDS ORDERED: NORCO 5/325 MG PO ONE (19:06)
[2020-11-07] MEDS ORDERED: NORCO 5/325 MG ONE (19:08)
[2020-11-07 19:15] VITALS: BP 127/77; PULSE 99
--- NOTE | 2020-11-07 21:48 | XRAY ---
Indication: Pain following fall. Comparison: None 2 nonweightbearing views right foot demonstrates small posterior/plantar heel spurs. No other bony, articular, or soft tissue abnormalities.
--- NOTE | 2020-11-07 21:51 | XRAY ---
Indication: Pain following fall. Comparison: None 3 view right ankle demonstrates small posterior/plantar heel spurs. No other bony, articular, or soft tissue abnormalities.
[2020-11-08] MEDS ORDERED: BACIGUENT 30 GM TP SCH (10:00)
[2020-11-08] MEDS ORDERED: NORCO 5/325 MG ONE (12:32)
== END 2020-11-07 20:07 | disposition home or self-care (01) ==
LOC: ED 17:47
DX: S80.811A Abrasion, right lower leg, initial encounter (principal); W10.9XXA Fall (on) (from) unspecified stairs and steps, initial encounter; Y93.9 Activity, unspecified; Y92.9 Unspecified place or not applicable; S93.401A Sprain of unspecified ligament of right ankle, initial encounter; M25.471 Effusion, right ankle; S80.211A Abrasion, right knee, initial encounter; Z34.82 Encounter for supervision of other normal pregnancy, second trimester; Z3A.20 20 weeks gestation of pregnancy
CPT/HCPCS: 73600; 73620; 96372; 99284; J1170; L4386; A9270-GY

== ENCOUNTER 2021-02-01 11:23 | Observation (INO) | payer OTHER ==
[2021-02-01 17:12] VITALS: BP 134/70
== END 2021-02-01 12:50 | disposition home or self-care (01) ==
LOC: OB 11:23
PROVIDERS: ADMIT Obstetrics & Gynecology; ATTEND Obstetrics & Gynecology
DX: Z34.83 Encounter for supervision of other normal pregnancy, third trimester (principal); Z3A.33 33 weeks gestation of pregnancy
CPT/HCPCS: 59025; G0378

== ENCOUNTER 2021-02-15 09:47 | Observation (INO) | payer OTHER ==
[2021-02-15 10:08] VITALS: PULSE 115
[2021-02-15 10:47] VITALS: BP 135/60
== END 2021-02-15 10:45 | disposition home or self-care (01) ==
LOC: OB 09:47
PROVIDERS: ADMIT Obstetrics & Gynecology; ATTEND Obstetrics & Gynecology
DX: Z34.83 Encounter for supervision of other normal pregnancy, third trimester (principal); Z3A.35 35 weeks gestation of pregnancy
CPT/HCPCS: 59025; G0378

== ENCOUNTER 2021-08-25 17:04 | Emergency (ER) | payer OTHER ==
[2021-08-25 17:27] VITALS: BP 170/130; PULSE 106; O2SAT 97
[2021-08-25] MEDS ORDERED: TORAdol 30 mg Injection IM ONE (17:35)
[2021-08-25] MEDS ORDERED: TORAdol 30 mg Injection ONE (18:02)
--- NOTE | 2021-08-25 18:10 | ERPHSYRPT ---
- History of Present Illness Time Seen by Provider: 08/25/21 17:14 Source: patient Exam Limitations: no limitations Patient Subjective Stated Complaint: Pt c/o of left ankle pain for 2 days, denies injury Triage Nursing Assessment: Pt brought self to the ER, hypertensive, tachycardic, rates pain as an 8 when she walks and a 3 when she is sitting down, pain to the left foot with palpatation, pt denies recent injury, injured it in January, left ankle swollen all the way around the foot, pulses normal, doesn't appear to be in any distress Physician History: Patient here with acute on chronic left ankle pain. Possible previous old fracture on previous x-ray. No other falls or trauma. This new pain started yesterday. Patient does have follow-up with orthopedic surgery tomorrow. Timing/Duration: yesterday Severity: moderate Modifying Factors: Improves With: immobilization, medication Associated Symptoms: denies symptoms Allergies/Adverse Reactions: sulfamethoxazole [From Bactrim] Allergy (Verified 08/25/21 17:27) trimethoprim [From Bactrim] Allergy (Verified 08/25/21 17:27) Hx Tetanus, Diphtheria Vaccination/Date Given: Yes Hx Influenza Vaccination/Date Given: No Hx Pneumococcal Vaccination/Date Given: No Travel Risk - International Travel Have you traveled outside of the country in past 3 weeks: No - Coronavirus Screening Are you exhibiting any of the following symptoms?: No Close contact with a COVID-19 positive Pt in past 14-21 Days: No - Vaccine Status Have you recieved a Covid-19 vaccination: No - Review of Systems Constitutional: No Fever, No Chills Eyes: No Symptoms Ears, Nose, & Throat: No Symptoms Respiratory: No Cough, No Dyspnea Cardiac: No Chest Pain, No Edema, No Syncope Abdominal/Gastrointestinal: No Abdominal Pain, No Nausea, No Vomiting, No Diarrhea Genitourinary Symptoms: No Dysuria Musculoskeletal: Other (left ankle pain), No Back Pain, No Neck Pain Skin: No Rash Neurological: No Dizziness, No Focal Weakness, No Sensory Changes Psychological: No Symptoms Endocrine: No Symptoms All Other Systems: Reviewed and Negative - Past Medical History Pertinent Past Medical History: Yes (skin infections) Neurological History: Migraines ENT History: No Pertinent History Cardiac History: No Pertinent History Respiratory History: No Pertinent History Endocrine Medical History: No Pertinent History Musculoskeletal History: Fractures GI Medical History: GERD History: No Pertinent History Psycho-Social History: No Pertinent History Female Reproductive Disorders: No Pertinent History Other Medical History: recalled from previous admission - Past Surgical History Past Surgical History: Yes Neuro Surgical History: No Pertinent History Cardiac: No Pertinent History Respiratory: No Pertinent History Gastrointestinal: Appendectomy Genitourinary: No Pertinent History Musculoskeletal: No Pertinent History Female Surgical History: Section Other Surgical History: c- section x2 - Social History Smoking Status: Current every day smoker How long have you smoked: 9 years Exposure to second hand smoke: Yes Drug Use: marijuana Patient Lives Alone: No - Female History Hx Last Menstrual Period: 08/14/2021 Hx Now: No - Nursing Vital Signs Nursing Vital Signs: Initial Vital Signs Temperature 97.3 F 08/25/21 17:11 Pulse Rate 106 H 08/25/21 17:11 Blood Pressure 170/130 08/25/21 17:11 O2 Sat by Pulse Oximetry 97 08/25/21 17:11 Pain Scale Pain Intensity 4 - Physical Exam General Appearance: no apparent distress, alert Eye Exam: PERRL/EOMI, eyes nml inspection Ears, Nose, Throat Exam: normal ENT inspection, TMs normal, pharynx normal, moist mucous membranes Neck Exam: normal inspection, non-tender, supple, full range of motion Respiratory Exam: normal breath sounds, lungs clear, No respiratory distress Cardiovascular Exam: regular rate/rhythm, normal heart sounds, normal peripheral pulses Gastrointestinal/Abdomen Exam: soft, normal bowel sounds, No tenderness, No mass Back Exam: normal inspection, normal range of motion, No CVA tenderness, No vertebral tenderness Extremity Exam: normal inspection, pelvis stable, other (Left ankle tenderness to palpation. No swelling, no edema, no signs of septic joint, full range of motion with pain. Distally intact neurovascularly.) Neurologic Exam: alert, oriented x 3, cooperative, normal mood/affect, nml cerebellar function, nml station & gait, sensation nml, No motor deficits Skin Exam: normal color, warm, dry, No rash Lymphatic Exam: No adenopathy SpO2: 97 Procedures - Splinting Location of Splint: Left, Ankle Type of Splint: Air Cast Splint Applied By: ED Physician Pre-Proc Neuro Vasc Exam: normal Post-Proc Neuro Vasc Exam: neurovascular intact - Course Nursing assessment & vital signs reviewed: Yes Ordered Tests: Active Orders 24 hr Category Date Time Status ANKLE (3 VIEWS) Stat Exams 08/25/21 18:01 Taken Medication Summary Discontinued Medications Generic Name Dose Route Start Last Admin Trade Name Shannon PRN Reason Stop Dose Admin Ketorolac Tromethamine 30 mg 08/25/21 17:35 08/25/21 18:06 Ketorolac Tromethamine 30 Mg/Ml Inj IM 08/25/21 17:36 30 mg STAT ONE Administration Ketorolac Tromethamine Confirm 08/25/21 18:02 Ketorolac Tromethamine 30 Mg/Ml Inj Administered 08/25/21 18:03 Dose 30 mg .ROUTE .[employer] AMD-MED ONE - Progress Progress: improved Progress Note: 08/25/21 18:23 X-ray shows possible posterior malleolus fracture. Will place patient in a Aircast. Will give patient crutches. Nonweightbearing. Plan for discharge home close follow-up with orthopedic surgery tomorrow. Return here for new or changing symptoms. - Departure Departure Disposition: Home Clinical Impression: Fracture of posterior malleolus of left tibia Condition: Stable Critical Care Time: No Referrals: MERON CRUZ [Primary Care Provider] - Follow up/PCP as directed Instructions: Ankle Sprain (DC), Ankle Fracture (DC) Additional Instructions: keep appointment with orthopedic surgery tomorrow Prescriptions: Cyclobenzaprine HCl 10 mg [Flexeril 10 MG] 10 mg PO TID #12 tablet
--- NOTE | 2021-08-26 08:33 | XRAY ---
Indication: Pain following fall. Comparison: None 3 view left ankle demonstrates nondisplaced cortical fracture posterior malleolus with soft tissue swelling. Incidental mild talotibial degenerative changes with tiny anterior heterotopic ossification and small posterior/plantar heel spurs. No other bony, articular, or soft tissue abnormalities.
== END 2021-08-25 18:35 | disposition home or self-care (01) ==
LOC: ED 17:04
DX: S82.892A Other fracture of left lower leg, initial encounter for closed fracture (principal); M25.572 Pain in left ankle and joints of left foot; Z72.0 Tobacco use; Z28.310 Unvaccinated for COVID-19
CPT/HCPCS: 73610; 96372; 99284; J1885

== ENCOUNTER 2021-12-30 10:08 | Emergency (ER) | payer OTHER ==
--- NOTE | 2021-12-30 10:31 | ERPHSYRPT ---
- History of Present Illness Time Seen by Provider: 12/30/21 10:30 Source: patient Exam Limitations: no limitations Patient Subjective Stated Complaint: pt here for sob for 2 days now with a cough, she states everyone at home is ill too and was negative for rsv and covid, pt has not been tested Triage Nursing Assessment: pt alert, resp easy, skin w/d/p. has nonproductive cough, face mask in place, no edema noted Physician History: This is a morbidly obese 36-year-old white female patient of Dr. Nicole who presents with nonproductive cough and mild shortness of breath for 2 days. Patient's children and family members have similar symptoms. They tested negative for RSV, flu and COVID. Patient has not had a fever. She denies chest pain. Patient's symptoms of been present for 2 days. Patient has a history of gastroesophageal reflux disease and migraine headaches. Timing/Duration: day(s) (2) Cough Quality/Degree: mild Possible Cause: no prior episodes Modifying Factors: Improves With: coughing Associated Symptoms: cough, shortness of breath (Mild), No fever, No chest pain/soreness, No dizziness, No earache, No headache Allergies/Adverse Reactions: sulfamethoxazole [From Bactrim] Allergy (Verified 12/30/21 10:14) trimethoprim [From Bactrim] Allergy (Verified 12/30/21 10:14) Hx Tetanus, Diphtheria Vaccination/Date Given: Yes Hx Influenza Vaccination/Date Given: No Hx Pneumococcal Vaccination/Date Given: No Immunizations Up to Date: Yes Travel Risk - International Travel Have you traveled outside of the country in past 3 weeks: No - Coronavirus Screening Are you exhibiting any of the following symptoms?: Yes Symptoms: Shortness of Breath - Vaccine Status Have you recieved a Covid-19 vaccination: No - Review of Systems Constitutional: No Symptoms Eyes: No Symptoms Ears, Nose, & Throat: No Symptoms Respiratory: Cough, Dyspnea (Mild) Cardiac: No Symptoms Abdominal/Gastrointestinal: No Symptoms Genitourinary Symptoms: No Symptoms Musculoskeletal: No Symptoms Skin: No Symptoms Neurological: No Symptoms Psychological: No Symptoms Endocrine: No Symptoms Hematologic/Lymphatic: No Symptoms Immunological/Allergic: No Symptoms All Other Systems: Reviewed and Negative - Past Medical History Pertinent Past Medical History: Yes (skin infections) Neurological History: Migraines ENT History: No Pertinent History Cardiac History: No Pertinent History Respiratory History: No Pertinent History Endocrine Medical History: No Pertinent History Musculoskeletal History: Fractures GI Medical History: GERD History: No Pertinent History Psycho-Social History: No Pertinent History Female Reproductive Disorders: No Pertinent History Other Medical History: recalled from previous admission - Past Surgical History Past Surgical History: Yes Neuro Surgical History: No Pertinent History Cardiac: No Pertinent History Respiratory: No Pertinent History Gastrointestinal: Appendectomy Genitourinary: No Pertinent History Musculoskeletal: No Pertinent History Female Surgical History: Section, Tubal Ligation Other Surgical History: c- section x2 - Social History Smoking Status: Current every day smoker How long have you smoked: 9 years Exposure to second hand smoke: Yes Drug Use: marijuana Patient Lives Alone: No - Female History Hx Last Menstrual Period: now Hx Now: No - Nursing Vital Signs Nursing Vital Signs: Initial Vital Signs Temperature 97.6 F 12/30/21 10:09 Pulse Rate 105 H 12/30/21 10:09 Respiratory Rate 16 12/30/21 10:09 Blood Pressure 171/97 12/30/21 10:09 O2 Sat by Pulse Oximetry 98 12/30/21 10:09 Pain Scale Pain Intensity 8 - Physical Exam General Appearance: no apparent distress, alert, anxiety Eye Exam: PERRL/EOMI, eyes nml inspection Ears, Nose, Throat Exam: normal ENT inspection, moist mucous membranes Neck Exam: normal inspection, non-tender, supple, full range of motion Respiratory Exam: normal breath sounds, lungs clear, airway intact, No chest tenderness, No respiratory distress Cardiovascular Exam: regular rate/rhythm, normal heart sounds, normal peripheral pulses Gastrointestinal/Abdomen Exam: soft, normal bowel sounds, No tenderness Pelvic Exam: not done Rectal Exam: not done Back Exam: normal inspection, normal range of motion, No CVA tenderness, No vertebral tenderness Extremity Exam: normal inspection, normal range of motion, pelvis stable Neurologic Exam: alert, oriented x 3, cooperative, senior rd engineer II-XII nml as tested, normal mood/affect, nml cerebellar function, nml station & gait, sensation nml Skin Exam: normal color, warm, dry Lymphatic Exam: No adenopathy SpO2 Interpretation: normal SpO2: 98 O2 Delivery: Room Air - Course Nursing assessment & vital signs reviewed: Yes EKG Interpreted by Me: RATE ([id number]), Sinus Rhythm, NORMAL AXIS, NORMAL INTERVALS, NORMAL QRS, NORMAL ST-T, Other (No acute ischemic changes on today's EKG.) Ordered Tests: Active Orders 24 hr Category Date Time Status AMA [Release AMA] OM.NOW Care 12/30/21 12:58 Active CHEST 1 VIEW (PORTABLE) Stat Exams 12/30/21 10:31 Completed BMP Stat Lab 12/30/21 12:10 Completed CBC W DIFF Stat Lab 12/30/21 12:10 Completed D-DIMER QUANTITATIVE Stat Lab 12/30/21 12:10 Received TROPONIN Q4H Lab 12/30/21 12:15 Received TROPONIN Q4H Lab 12/30/21 16:15 Ordered TROPONIN Q4H Lab 12/30/21 20:15 Ordered Medication Summary Discontinued Medications Generic Name Dose Route Start Last Admin Trade Name Freq PRN Reason Stop Dose Admin Hydrocodone Bitart/Acetaminophen 10 ml 12/30/21 12:01 12/30/21 12:04 Hydrocodone/Acetaminophen 5 Ml Udcup PO 12/30/21 12:02 5 ml STAT STA Administration Hydrocodone Bitart/Acetaminophen Confirm 12/30/21 12:04 Hydrocodone/Acetaminophen 5 Ml Udcup Administered 12/30/21 12:05 Dose 10 ml .ROUTE .STK-MED ONE Methylprednisolone Sodium 0 mg 12/30/21 12:01 12/30/21 12:51 Succinate 125 mg/ Sterile IM 12/30/21 12:02 125 mg Water 2 ml STAT ONE Administration Methylprednisolone Sodium Succinate Confirm 12/30/21 12:23 Methylprednis Sod Succ 125 Mg/2 Ml Vial Administered 12/30/21 12:24 Dose 125 mg .ROUTE .STK-MED ONE Sterile Water Confirm 12/30/21 12:23 Water For Injection,Sterile 10 Ml Vial Administered 12/30/21 12:24 Dose 10 ml IJ .STK-MED ONE Lab/Rad Data: Laboratory Result Diagrams 12/30/21 12:10 12/30/21 12:10 Laboratory Results 12/30/21 12/30/21 12/30/21 Range/Units 12:10 12:10 10:45 WBC 7.4 (4.0-10.5) x10^3/uL RBC 4.76 (4.1-5.4) x10^6/uL Hgb 11.9 L (12.0-16.0) g/dL Hct 39.6 (35-47) % MCV 83.2 (78-100) fL MCH 25.0 L (26-32) pg MCHC 30.1 L (32-36) g/dL RDW 13.9 (11.5-14.0) % Plt Count 326 (150-450) x10^3/uL MPV 9.9 (7.5-11.0) fL Gran % 58.3 (36.0-66.0) % Immature Gran % (Auto) 0.1 (0.00-0.4) % Nucleat RBC Rel Count 0.0 (0.00-0.1) % Eos # (Auto) 0.35 (0-0.5) x10^3/uL Immature Gran # (Auto) 0.01 (0.00-0.03) x10^3u/L Absolute Lymphs (auto) 2.29 (1.0-4.6) x10^3/uL Absolute Monos (auto) 0.40 (0.0-1.3) x10^3/uL Absolute Nucleated RBC 0.00 (0.00-0.01) x10^3u/L Lymphocytes % 30.8 (24.0-44.0) % Monocytes % 5.4 (0.0-12.0) % Eosinophils % 4.7 (0.00-5.0) % Basophils % 0.7 (0.0-0.4) % Absolute Granulocytes 4.34 (1.4-6.9) x10^3/uL Basophils # 0.05 (0-0.4) x10^3/uL Sodium 140 (137-145) mmol/L Potassium 4.1 (3.5-5.1) mmol/L Chloride 108 H (98-107) mmol/L Carbon Dioxide 27 (22-30) mmol/L Anion Gap 8.9 (5-15) MEQ/L BUN 8 (7-17) mg/dL Creatinine 0.58 (0.52-1.04) mg/dL Estimated GFR > 60.0 ML/MIN Glucose 98 (74-106) mg/dL Calcium 8.8 (8.4-10.2) mg/dL Influenza Type A Ag NEGATIVE (NEGATIVE) Influenza Type B Ag NEGATIVE (NEGATIVE) RSV (PCR) NEGATIVE (Negative) SARS-CoV-2 (PCR) NEGATIVE (NEGATIVE) - Progress Progress: improved, re-examined Air Movement: good Progress Note: 12/30/21 11:02 Chest x-ray shows no acute cardiopulmonary process. The patient symptoms appear to me to be more of flu, bronchitis type issues. I did discuss with her about performing troponin levels and D-dimer. Patient does not want that level of a work-up. She agrees to the flu swabs and a chest x-ray at this time. She then agrees to receive symptomatic relief with prescriptions and follow-up with her primary care provider as an outpatient. 12/30/21 11:57 Patient did not want to sign refusal of blood draw and therefore she now agrees to have the troponin level and D-dimer level obtained. 12/30/21 13:01 Patient signed out AGAINST MEDICAL ADVICE. She wanted to leave. The work-up results were not complete. Patient states that she wanted to leave and follow- up with her primary care doctor, Dr. Nicole at her scheduled appointment at 2:45 PM. The nursing staff advised the patient of the risks of leaving AGAINST MEDICAL ADVICE knowing that we are still waiting for a troponin level and D- dimer level for the possibility of her having an acute myocardial infarction and/or pulmonary embolus or DVT. Counseled pt/family regarding: lab results, diagnosis, need for follow-up, rad results - Departure Departure Disposition: AMA Clinical Impression: Cough, Shortness of breath Condition: Stable Critical Care Time: No Referrals: MERON NICOLE [Primary Care Provider] - Follow up/PCP as directed Additional Instructions: Drink plenty fluids. Take your medication as prescribed. Follow-up with your primary care provider for further evaluation and management. Prescriptions: Hydrocodone/Acetaminophen [Hydrocodone-Acetamn 7.5-325/15] 10 ml PO Q8H PRN PRN #120 ml MDD 30 ml PRN Reason: Cough Prednisone 10 mg [Deltasone 10 mg] 10 mg PO TID #12 tablet Azithromycin 250 mg [Zithromax 250 MG TABLET] 250 mg PO ZPACK #6 tablet
--- NOTE | 2021-12-30 10:48 | XRAY ---
Indication: Cough and short of breath. Comparison: June 20, 2017 Portable chest again demonstrates normal heart, lungs, and bony thorax.
[2021-12-30 11:32] LABS: INFLUENZA A NEGATIVE (NEGATIVE); INFLUENZA B NEGATIVE (NEGATIVE); RESPIRATORY SYNCTIAL VIRUS NEGATIVE (Negative); SARS-CoV-2 Xpert Express NEGATIVE (NEGATIVE)
[2021-12-30 11:33] VITALS: O2SAT 98
[2021-12-30] MEDS ORDERED: HYDROCODONE-ACETAMIN 2.5-108/5 ML SOLUTION PO STA (12:01)
[2021-12-30] MEDS ORDERED: solu-MEDROL 125 MG, Sterile H2O 10 ml 2 ML IM ONE ×2 (12:01)
[2021-12-30] MEDS ORDERED: HYDROCODONE-ACETAMIN 2.5-108/5 ML SOLUTION ONE (12:04)
[2021-12-30] MEDS ORDERED: Sterile H2O 10 ml IJ ONE (12:23)
[2021-12-30] MEDS ORDERED: solu-MEDROL ONE (12:23)
[2021-12-30 12:25] LABS: Absolute Neutrophil Ct (ANC) 4.34 x10^3/uL (1.4-6.9); Basophil (Absolute #) 0.05 x10^3/uL (0-0.4); Eosinophil % 4.7 % (0.00-5.0); Eosinophil (Absolute #) 0.35 x10^3/uL (0-0.5); Hematocrit 39.6 % (35-47); Hemoglobin 11.9 g/dL (12.0-16.0); Lymphocyte (Absolute #) 2.29 x10^3/uL (1.0-4.6); Lymphocytes % 30.8 % (24.0-44.0); Mean Cell Volume 83.2 fL (78-100); Mean Corpuscular Hgb Concent. 30.1 g/dL (32-36); Mean Platelet Volume 9.9 fL (7.5-11.0); Monocytes % 5.4 % (0.0-12.0); Neutrophil % 58.3 % (36.0-66.0); Platelet Count 326 x10^3/uL (150-450); Red Blood Count 4.76 x10^6/uL (4.1-5.4); Red Cell Distribution Width 13.9 % (11.5-14.0); White Blood Count 7.4 x10^3/uL (4.0-10.5)
[2021-12-30 12:40] VITALS: BP 144/111; PULSE 69
[2021-12-30 12:44] LABS: ANION GAP 8.9 MEQ/L (5-15); BLOOD UREA NITROGEN 8 mg/dL (7-17); CHLORIDE 108 mmol/L (98-107); Calcium 8.8 mg/dL (8.4-10.2); Carbon Dioxide 27 mmol/L (22-30); Creatinine 1 0.58 mg/dL (0.52-1.04); EST GLOMERULAR FILTRATION RATE > 60.0 ML/MIN; Glucose 98 mg/dL (74-106); Potassium 4.1 mmol/L (3.5-5.1); SODIUM 140 mmol/L (137-145)
== END 2021-12-30 13:07 | disposition left against medical advice (07) ==
LOC: ED 10:08
DX: R07.9 Chest pain, unspecified (principal); R06.02 Shortness of breath; Z72.0 Tobacco use; Z79.891 Long term (current) use of opiate analgesic; Z79.52 Long term (current) use of systemic steroids; Z28.310 Unvaccinated for COVID-19
CPT/HCPCS: 0241U; 36415; 71045; 80048; 84484; 85025; 85379; 93005; 96372; 99284; J2930; A9270-GY

== ENCOUNTER 2023-06-04 06:23 | Emergency (ER) | payer OTHER ==
[2023-06-04 06:48] VITALS: PULSE 115; RESP 22; TEMP 97.1; O2SAT 98
--- NOTE | 2023-06-04 07:56 | ERPHSYRPT ---
- History of Present Illness Time Seen by Provider: 06/04/23 07:43 Source: patient Exam Limitations: no limitations Patient Subjective Stated Complaint: pt states she woke up this morning with a sharp pain that starts in her upper back that radiates to left shoulder and neck Triage Nursing Assessment: pt ambulated into the er; pt is pacing, crying, restless; pt axo x4; c/o back pain; pt states 7/10 pain to left upper back, left shoulder, left side of neck; tenderness present to left upper back, shoulder, and neck; good ROM to LUE and back; no respiratory distress present; skin PDW; tachycardic Physician History: 38 years old morbidly obese female presented in the ER with complaints of sudden onset left neck and left scapular area pain moderate to severe sharp. Hurts to move and palpation of scapula. No difficulty breathing. Pain radiates from the neck. Patient reports having similar symptoms in the past. No numbness tingling or weakness of left upper extremity. Allergies/Adverse Reactions: sulfamethoxazole [From Bactrim] Allergy (Verified 06/04/23 06:33) trimethoprim [From Bactrim] Allergy (Verified 06/04/23 06:33) Hx Tetanus, Diphtheria Vaccination/Date Given: Yes Hx Influenza Vaccination/Date Given: No Hx Pneumococcal Vaccination/Date Given: No Travel Risk - International Travel Have you traveled outside of the country in past 3 weeks: No - Emerging Infectious Disease Are you exhibiting symptoms associated with any current EIDs: No - Review of Systems Constitutional: No Symptoms Eyes: No Symptoms Ears, Nose, & Throat: No Symptoms Respiratory: No Symptoms Cardiac: No Symptoms Abdominal/Gastrointestinal: No Symptoms Genitourinary Symptoms: No Symptoms Musculoskeletal: Neck Pain Skin: No Symptoms Neurological: No Symptoms Hematologic/Lymphatic: No Symptoms Immunological/Allergic: No Symptoms - Past Medical History Pertinent Past Medical History: Yes (skin infections) Neurological History: Migraines ENT History: No Pertinent History Cardiac History: No Pertinent History Respiratory History: No Pertinent History Endocrine Medical History: No Pertinent History Musculoskeletal History: Fractures GI Medical History: GERD History: No Pertinent History Psycho-Social History: No Pertinent History Female Reproductive Disorders: No Pertinent History Other Medical History: recalled from previous admission - Past Surgical History Past Surgical History: Yes Neuro Surgical History: No Pertinent History Cardiac: No Pertinent History Respiratory: No Pertinent History Gastrointestinal: Appendectomy Genitourinary: No Pertinent History Musculoskeletal: No Pertinent History Female Surgical History: Section, Tubal Ligation Other Surgical History: c- section x2 - Female History Hx Now: No - Social History Smoking Status: Current every day smoker How long have you smoked: 9 years Exposure to second hand smoke: Yes Drug Use: marijuana Patient Lives Alone: No - Nursing Vital Signs Nursing Vital Signs: Initial Vital Signs Blood Pressure 139/114 06/04/23 06:33 Pain Scale Pain Intensity [Left Upper 7 Back] Pain Intensity 5 - Physical Exam General Appearance: no apparent distress, alert Eye Exam: PERRL/EOMI Ears, Nose, Throat Exam: normal ENT inspection Neck Exam: normal inspection, supple, limited range of motion, other (Tenderness left trapezius muscle all the way down. Also tenderness in the left scapula. Intact range of motion of left shoulder. No midline tenderness.), No full range of motion, No midline tenderness Respiratory Exam: normal breath sounds, lungs clear Cardiovascular Exam: regular rate/rhythm, normal heart sounds Gastrointestinal Exam: soft, normal bowel sounds, No tenderness Back Exam: normal inspection, normal range of motion, No vertebral tenderness Extremity Exam: normal inspection, normal range of motion Neurologic Exam: alert, oriented x 3, cooperative, insurance office supervisor II-XII nml as tested, sensation nml, No motor deficits Skin Exam: normal color SpO2 Interpretation: normal SpO2: 98 O2 Delivery: Room Air - Course EKG Interpreted by Me: RATE (85), Sinus Rhythm, NORMAL AXIS, NORMAL INTERVALS, NORMAL QRS Ordered Tests: Active Orders 24 hr Category Date Time Status EKG-ER Only STAT Care 06/04/23 07:32 Completed CERVICAL SPINE WO CONTRAST [CT] Stat Exams 06/04/23 07:32 Completed Medication Summary Discontinued Medications Generic Name Dose Route Start Last Admin Trade Name Freq PRN Reason Stop Dose Admin Ketorolac Tromethamine 30 mg 06/04/23 07:32 06/04/23 08:49 Ketorolac Tromethamine 30 Mg/Ml Inj IM 06/04/23 07:33 30 mg STAT ONE Administration Ketorolac Tromethamine Confirm 06/04/23 08:47 Ketorolac Tromethamine 30 Mg/Ml Inj Administered 06/04/23 08:48 Dose 30 mg .ROUTE .STK-MED ONE Orphenadrine Citrate 60 mg 06/04/23 07:32 06/04/23 08:49 Orphenadrine Citrate 60 Mg/2 Ml Vial IM 06/04/23 07:33 60 mg STAT ONE Administration Orphenadrine Citrate Confirm 06/04/23 08:47 Orphenadrine Citrate 60 Mg/2 Ml Vial Administered 06/04/23 08:48 Dose 60 mg .ROUTE .STK-MED ONE - Progress Progress: improved Progress Note: 06/04/23 09:01 38 years old is evaluated in the ER for left neck pain with tenderness in the muscle especially in the trapezius area. Patient pain is reproducible with palpation and movements in the neck. EKG is normal sinus rhythm with no acute ischemic changes. She does not have any chest pain. I have obtained CT cervica l spine which showed old degenerative changes and some element of spasm. She is given Toradol and Norflex, on reevaluation her pain is much improved. She has also improved mobility of the neck. I do not think patient's symptoms are cardiac or pulmonary etiology but of musculoskeletal. She has no upper extremity weakness/numbness or any other neurosymptoms. I would give her NSAIDs and Flexeril to go home and outpatient primary care follow-up recommended. Discussed signs symptoms of worsening needing return to ER which she seems understanding. 06/04/23 09:03 Counseled pt/family regarding: diagnosis, need for follow-up, rad results Medical Desision Making - Diagnostic Testing Diagnostic test were ordered, analyzed, and reviewed by me: Yes Radiological Interpretation: Reviewed by me, Teleradiologist Report - Risk of complications The pt has a mod risk of morbidity or mortality based on: Need for prescription drug management - Departure Departure Disposition: Home Clinical Impression: Cervical paraspinal muscle spasm Condition: Stable Critical Care Time: No Referrals: MERON CRUZ [Primary Care Provider] - Follow up with PCP 1 day Instructions: Cervical Muscle Strain (DC) Additional Instructions: Intermittent ice application. Take Tylenol/ibuprofen as needed for pain. Follow-up with primary care for reevaluation. Return to ER for intractable pain, numbness tingling weakness of her upper extremity or if having chest pain palpitations or shortness of breath etc. Prescriptions: Ibuprofen 600 mg PO Q6HPRN PRN 10 Days #20 tablet PRN Reason: Pain Cyclobenzaprine HCl 10 mg [Flexeril 10 MG] 10 mg PO TID #20 tablet
[2023-06-04 07:57] VITALS: BP 123/84
[2023-06-04] MEDS ORDERED: Norflex 60 MG/2 ML ONE (08:47)
[2023-06-04] MEDS ORDERED: TORAdol 30 mg Injection ONE (08:47)
[2023-06-04] MEDS: Norflex 60 MG/2 ML IM ONE (08:49)
[2023-06-04] MEDS: TORAdol 30 mg Injection IM ONE (08:49)
--- NOTE | 2023-06-04 08:55 | XRAY ---
CLINICAL HISTORY: pain TECHNIQUE: Computed tomography of the cervical spine performed without intravenous contrast. Contiguous axial images were obtained from the skull base to T2, with sagittal and coronal reformatted images reconstructed from the axial data. CT scan was performed according to ALARA (as low as reasonably achievable). COMPARISON: None FINDINGS: There is straightening and mild reversal of normal cervical lordotic curvature, likely positional or due to muscular spasm. Cervical vertebral bodies are normal in height and alignment, with no evidence of fracture or subluxation. Lateral masses of C1 are symmetrical, and the dens is intact. Prevertebral soft tissues are not widened. The remaining suprahyoid and infrahyoid soft tissues in the neck are unremarkable. C2-C3: No disc bulge, mass effect on the cord or neuroforaminal narrowing. C3-C4: No disc bulge, mass effect on the cord or neuroforaminal narrowing. C4-C5: No disc bulge, mass effect on the cord or neuroforaminal narrowing. C5-C6: No disc bulge, mass effect on the cord or neuroforaminal narrowing. C6-C7: No disc bulge, mass effect on the cord or neuroforaminal narrowing. C7-T1: No disc bulge, mass effect on the cord or neuroforaminal narrowing. IMPRESSION: 1. No obvious acute vertebral fracture, dislocation, or collapse seen in the cervical spine. 2. No significant disc bulge, causing cord compression or nerve root impingement seen. 3. Straightening and mild reversal of normal cervical lordotic curvature, likely positional or due to muscular spasm. Electronically Signed by: Joel Back MD. (06/04/2023 08:50:42 EDT)
== END 2023-06-04 09:21 | disposition home or self-care (01) ==
LOC: ED 06:23
DX: M62.838 Other muscle spasm (principal); M54.2 Cervicalgia; M25.512 Pain in left shoulder; Z72.0 Tobacco use
CPT/HCPCS: 72125; 93005; 96372; 99284; J1885; J2360

== ENCOUNTER 2024-05-23 02:37 | Observation (INO) | payer MEDICAID, OTHER ==
[2024-05-23 03:16] LABS: Absolute Neutrophil Ct (ANC) 6.32 x10^3/uL (1.56-6.13); BASOPHIL % 0.6 % (0.1-1.2); Basophil (Absolute #) 0.07 x10^3/uL (0.01-0.08); Eosinophil % 4.6 % (0.7-5.8); Hematocrit 41.9 % (34.1-44.9); Hemoglobin 13.1 g/dL (11.2-15.7); IMMATURE GRAN # 0.03 x10^3u/L (0.001-0.031); IMMATURE GRAN % 0.3 % (0.001-0.429); Lymphocyte (Absolute #) 3.47 x10^3/uL (1.18-3.74); Lymphocytes % 31.6 % (19.3-51.7); Mean Cell Volume 80.3 fL (79.4-94.8); Mean Corpuscular Hemoglobin 25.1 pg (25.6-32.2); Mean Corpuscular Hgb Concent. 31.3 g/dL (32.2-35.5); Mean Platelet Volume 10.2 fL (9.4-12.3); Monocyte (Absolute #) 0.58 x10^3/uL (0.24-0.86); Monocytes % 5.3 % (4.7-12.5); Neutrophil % 57.6 % (34.0-71.1); Platelet Count 319 x10^3/uL (182-369); Red Blood Count 5.22 x10^6/uL (3.93-5.22)
[2024-05-23 03:30] LABS: HCG URINE TEST NEGATIVE (NEGATIVE)
[2024-05-23 03:31] LABS: ALBUMIN 4.3 g/dL (3.5-5.0); ALKALINE PHOSPHATASE 81 U/L (38-126); ANION GAP 15.7 MEQ/L (5-15); BLOOD UREA NITROGEN 13 mg/dL (7-17); CHLORIDE 102 mmol/L (98-107); Calcium 9.6 mg/dL (8.4-10.2); Carbon Dioxide 24 mmol/L (22-30); Creatinine 1 0.59 mg/dL (0.52-1.04); Glucose 116 mg/dL (74-106); NT PRO BNPII < 20.0 pg/mL (<300); SGOT/AST 22 U/L (14-36); SGPT/ALT 20 U/L (0-35); SODIUM 139 mmol/L (135-145); Total Protein 7.4 g/dL (6.3-8.2)
[2024-05-23 03:36] LABS: Appearance Cloudy (Clear); Bacteria Moderate /HPF (None Seen); Bilirubin Small (Negative); Blood Trace (Negative); Epithelial Cells Moderate /HPF (None Seen); Glucose, Urine Negative (Negative); Ketones Negative (Negative); Leukocyte Esterase Negative (Negative); Nitrite Negative (Negative); Protein,Urine Dip 30 (Negative); Specific Gravity >=1.030 (1.005-1.030)
[2024-05-23] MEDS ORDERED: MORPHINE SULFATE 4 MG INJ ONE (03:45)
[2024-05-23] MEDS ORDERED: Zofran 4 MG/2 ML VIAL ONE (03:45)
[2024-05-23] MEDS: Zofran 4 MG/2 ML VIAL IV ONE (03:46)
[2024-05-23] MEDS: MORPHINE SULFATE 4 MG INJ IV ONE (03:47)
--- NOTE | 2024-05-23 03:51 | ERPHSYRPT ---
- History of Present Illness Time Seen by Provider: 05/23/24 02:55 Historian: patient Exam Limitations: no limitations Patient Subjective Stated Complaint: pt states that she was woke up out of her sleep with severe chest pain Triage Nursing Assessment: pt ambulated into the er; pt is axo x4; pt was holding chest crying; pt is anxious and restless; c/o chest pain; pt states 6/10 pain to chest; pt states pain radiates to back; clear apical heart tone; strong johanna radial pulse; strong johanna pedal pulse; no edema present; pt states SOB, pt able to talk in full sentences, no respiratory distress present; vitals wnl; skin PDW Physician History: Patient is a 39-year-old female presents to our ED for evaluation of chest pain. Patient reports that chest pain awoke her from her sleep. Pain described as an burning sensation that radiates into her back. Patient states she feels as though there is a rock sitting in her chest. No trauma no fever. Patient states she has had this pain in the past however it had resolved spontaneously. Patient states the pain is now constant. No shortness of breath no nausea vomiting or diaphoresis. Patient rates her pain 6 out of 10. Patient voices no other complaints or concerns at this time. Portions of this note were created with voice recognition technology. There may be grammatical, spelling, punctuation or sound alike errors Timing/Duration: today Activities at Onset: none Quality: burning Location: substernal Chest Pain Radiation: back Severity of Pain-Max: moderate Severity of Pain-Current: mild Modifying Factors: Improves With: nothing Associated Symptoms: denies symptoms Prior Chest Pain/Cardiac Workup: no prior chest pain Nitro Today/Relief: no nitro taken today Aspirin Treatment Today: no aspirin today Allergies/Adverse Reactions: sulfamethoxazole [From Bactrim] Allergy (Verified 05/23/24 02:41) trimethoprim [From Bactrim] Allergy (Verified 05/23/24 02:41) Home Medications: No Reportable Medications [No Reported Medications] 05/23/24 [History] Hx Tetanus, Diphtheria Vaccination/Date Given: Yes Hx Influenza Vaccination/Date Given: No Hx Pneumococcal Vaccination/Date Given: No Travel Risk - International Travel Have you traveled outside of the country in past 3 weeks: No - Emerging Infectious Disease Are you exhibiting symptoms associated with any current EIDs: No - Review of Systems Constitutional: No Symptoms, No Fever, No Chills Eyes: No Symptoms Ears, Nose, & Throat: No Symptoms Respiratory: No Symptoms, No Cough, No Dyspnea Cardiac: No Symptoms, No Chest Pain, No Edema, No Syncope Abdominal/Gastrointestinal: No Symptoms, No Abdominal Pain, No Nausea, No Vomiting, No Diarrhea Genitourinary Symptoms: No Symptoms, No Dysuria Musculoskeletal: No Symptoms, No Back Pain, No Neck Pain Skin: No Symptoms, No Rash Neurological: No Symptoms, No Dizziness, No Focal Weakness, No Sensory Changes Psychological: No Symptoms Endocrine: No Symptoms Hematologic/Lymphatic: No Symptoms Immunological/Allergic: No Symptoms All Other Systems: Reviewed and Negative - Past Medical History Pertinent Past Medical History: Yes (skin infections) Neurological History: Migraines ENT History: No Pertinent History Cardiac History: No Pertinent History Respiratory History: No Pertinent History Endocrine Medical History: No Pertinent History Musculoskeletal History: Fractures GI Medical History: GERD History: No Pertinent History Psycho-Social History: No Pertinent History Female Reproductive Disorders: No Pertinent History Other Medical History: recalled from previous admission - Past Surgical History Past Surgical History: Yes Neuro Surgical History: No Pertinent History Cardiac: No Pertinent History Respiratory: No Pertinent History Gastrointestinal: Appendectomy Genitourinary: No Pertinent History Musculoskeletal: No Pertinent History Female Surgical History: Section, Tubal Ligation Other Surgical History: c- section x2 - Female History Hx Last Menstrual Period: 3 weeks ago Hx Now: No - Social History Smoking Status: Current every day smoker How long have you smoked: 9 years Exposure to second hand smoke: Yes Drug Use: marijuana - Social Determinants of Health Will the patient participate in the screening: Yes Do you worry about a steady place to live?: No Do you have any problems with any of the following?: No known problems In the past 12 months,have you had to go without utilities?: No Transportation Issues: No Has anyone in your support network made you feel unsafe?: No Have you or anyone in your house had to go w/o enough food: No - Nursing Vital Signs Nursing Vital Signs: Initial Vital Signs Temperature 97.6 F 05/23/24 02:42 Pulse Rate 86 05/23/24 02:42 Respiratory Rate 14 05/23/24 02:42 Blood Pressure 138/90 05/23/24 02:42 O2 Sat by Pulse Oximetry 98 05/23/24 02:42 Pain Scale Pain Intensity 6 - Physical Exam General Appearance: no apparent distress, alert Eye Exam: PERRL/EOMI, eyes nml inspection Ears, Nose, Throat Exam: normal ENT inspection, moist mucous membranes Neck Exam: normal inspection, non-tender, supple, full range of motion Respiratory Exam: normal breath sounds, lungs clear, airway intact, No respiratory distress Cardiovascular Exam: regular rate/rhythm, normal heart sounds Gastrointestinal/Abdomen Exam: soft, No tenderness, No mass Back Exam: normal inspection, No CVA tenderness, No vertebral tenderness Extremity Exam: normal inspection, normal range of motion Neurologic Exam: alert, oriented x 3, cooperative, normal mood/affect, sensation nml, No motor deficits Skin Exam: normal color, warm, dry SpO2 Interpretation: normal SpO2: 97 O2 Delivery: Room Air - Course Nursing assessment & vital signs reviewed: Yes EKG Interpreted by Me: RATE (86), Sinus Rhythm, NORMAL AXIS, NORMAL INTERVALS, NORMAL QRS - Radiology Exams Chest X-ray Interpretation: Interpreted by me (No acute findings) Ordered Tests: Active Orders 24 hr Category Date Time Status Carton Inspector STAT Care 05/23/24 03:06 Active EKG-ER Only STAT Care 05/23/24 03:05 Active IV Insertion STAT Care 05/23/24 03:05 Active Pulse Oximetry (ED) STAT Care 05/23/24 03:05 Active CHEST 1 VIEW (PORTABLE) Stat Exams 05/23/24 03:45 Taken CBC W DIFF Stat Lab 05/23/24 03:00 Completed CMP Stat Lab 05/23/24 03:00 Completed CULTURE,URINE Stat Lab 05/23/24 03:24 Received D-DIMER QUANTITATIVE Stat Lab 05/23/24 03:00 Completed HCG QUALITATIVE, URINE Stat Lab 05/23/24 03:00 Completed NT PRO BNPII Stat Lab 05/23/24 03:00 Completed TROPONIN Q4H Lab 05/23/24 03:00 Completed TROPONIN Q4H Lab 05/23/24 05:23 Completed TROPONIN Q4H Lab 05/23/24 11:15 Ordered UA W/RFX UR CULTURE Stat Lab 05/23/24 03:24 Completed Transfer Order Routine Transfer 05/23/24 Ordered Medication Summary Discontinued Medications Generic Name Dose Route Start Last Admin Trade Name Freq PRN Reason Stop Dose Admin Al Hydrox/Mg Hydrox/Simethicone Confirm 05/23/24 04:42 Mag Hydrox/Al Hydrox/Simeth 30 Ml Udcup Administered 05/23/24 04:43 Dose 30 ml .ROUTE .STK-MED ONE Lidocaine HCl Confirm 05/23/24 04:42 Lidocaine Hcl 2% Viscous 15 Ml Udcup Administered 05/23/24 04:43 Dose 15 ml .ROUTE .STK-MED ONE Magnesium Hydroxide 45 ml 05/23/24 04:27 05/23/24 04:43 Mag Hydrx/Alum Hyd/Simeth/Lido 45 Ml Bottle PO 05/23/24 04:28 45 ml STAT ONE Administration Morphine Sulfate 4 mg 05/23/24 03:43 05/23/24 03:47 Morphine Sulfate 4 Mg/Ml Injection IV 05/23/24 03:44 4 mg STAT ONE Administration Morphine Sulfate Confirm 05/23/24 03:45 Morphine Sulfate 4 Mg/Ml Injection Administered 05/23/24 03:46 Dose 4 mg .ROUTE .STK-MED ONE Ondansetron HCl 4 mg 05/23/24 03:43 05/23/24 03:46 Ondansetron Hcl 4 Mg/2 Ml Vial IV 05/23/24 03:44 4 mg STAT ONE Administration Ondansetron HCl Confirm 05/23/24 03:45 Ondansetron Hcl 4 Mg/2 Ml Vial Administered 05/23/24 03:46 Dose 4 mg .ROUTE .STK-[facility] ONE Lab/Rad Data: Laboratory Result Diagrams 05/23/24 03:00 05/23/24 03:00 Laboratory Results 05/23/24 05/23/24 05/23/24 Range/Units 05:23 03:24 03:00 WBC (3.98-10.04) x10^3/uL RBC (3.93-5.22) x10^6/uL Hgb (11.2-15.7) g/dL Hct (34.1-44.9) % MCV (79.4-94.8) fL MCH (25.6-32.2) pg MCHC (32.2-35.5) g/dL RDW (11.7-14.4) % Plt Count (182-369) x10^3/uL MPV (9.4-12.3) fL Gran % (34.0-71.1) % Immature Gran % (Auto) (0.001-0.429) % Nucleat RBC Rel Count (0.00-0.2) % Eos # (Auto) (0.04-0.36) x10^3/uL Immature Gran # (Auto) (0.001-0.031) x10^3u/L Absolute Lymphs (auto) (1.18-3.74) x10^3/uL Absolute Monos (auto) (0.24-0.86) x10^3/uL Absolute Nucleated RBC (0.00-0.012) x10^3u/L Lymphocytes % (19.3-51.7) % Monocytes % (4.7-12.5) % Eosinophils % (0.7-5.8) % Basophils % (0.1-1.2) % Absolute Granulocytes (1.56-6.13) x10^3/uL Basophils # (0.01-0.08) x10^3/uL D-Dimer 0.30 (0.0-0.50) mg/L Sodium (135-145) mmol/L Potassium (3.5-5.1) mmol/L Chloride (98-107) mmol/L Carbon Dioxide (22-30) mmol/L Anion Gap (5-15) MEQ/L BUN (7-17) mg/dL Creatinine (0.52-1.04) mg/dL Estimated GFR ML/MIN Glucose (74-106) mg/dL Calcium (8.4-10.2) mg/dL Total Bilirubin (0.2-1.3) mg/dL AST (14-36) U/L ALT (0-35) U/L Alkaline Phosphatase (38-126) U/L Troponin I 0.025 (0.000-0.033) ng/mL NT-Pro-B Natriuret Pep (<300) pg/mL Serum Total Protein (6.3-8.2) g/dL Albumin (3.5-5.0) g/dL Urine Color Dark Yellow A (Yellow) Urine Appearance Cloudy A (Clear) Urine pH 5.0 (4.6-8.0) Ur Specific [place] >=1.030 A (1.005-1.030) Urine Protein 30 (Negative) Urine Glucose (UA) Negative (Negative) mg/dL Urine Ketones Negative (Negative) Urine Blood Trace (Negative) Urine Nitrite Negative (Negative) Urine Bilirubin Small A (Negative) Urine Urobilinogen 1.0 A (0.2) mg/dL Ur Leukocyte Esterase Negative (Negative) U Hyaline Cast (Auto) 3-5 A (0-2) /LPF Urine Microscopic RBC 3-5 (0-5) /HPF Urine Microscopic WBC 3-5 (0-5) /HPF Ur Epithelial Cells Moderate A (None Seen) /HPF Urine Bacteria Moderate A (None Seen) /HPF Urine Culture Reflexed YES (NO) Urine HCG, Qual (NEGATIVE) 05/23/24 05/23/24 05/23/24 Range/Units 03:00 03:00 03:00 WBC (3.98-10.04) x10^3/uL RBC (3.93-5.22) x10^6/uL Hgb (11.2-15.7) g/dL Hct (34.1-44.9) % MCV (79.4-94.8) fL MCH (25.6-32.2) pg MCHC (32.2-35.5) g/dL RDW (11.7-14.4) % Plt Count (182-369) x10^3/uL MPV (9.4-12.3) fL Gran % (34.0-71.1) % Immature Gran % (Auto) (0.001-0.429) % Nucleat RBC Rel Count (0.00-0.2) % Eos # (Auto) (0.04-0.36) x10^3/uL Immature Gran # (Auto) (0.001-0.031) x10^3u/L Absolute Lymphs (auto) (1.18-3.74) x10^3/uL Absolute Monos (auto) (0.24-0.86) x10^3/uL Absolute Nucleated RBC (0.00-0.012) x10^3u/L Lymphocytes % (19.3-51.7) % Monocytes % (4.7-12.5) % Eosinophils % (0.7-5.8) % Basophils % (0.1-1.2) % Absolute Granulocytes (1.56-6.13) x10^3/uL Basophils # (0.01-0.08) x10^3/uL D-Dimer (0.0-0.50) mg/L Sodium 139 (135-145) mmol/L Potassium 4.0 (3.5-5.1) mmol/L Chloride 102 (98-107) mmol/L Carbon Dioxide 24 (22-30) mmol/L Anion Gap 15.7 H (5-15) MEQ/L BUN 13 (7-17) mg/dL Creatinine 0.59 (0.52-1.04) mg/dL Estimated GFR 119.0 ML/MIN Glucose 116 H (74-106) mg/dL Calcium 9.6 (8.4-10.2) mg/dL Total Bilirubin 0.90 (0.2-1.3) mg/dL AST 22 (14-36) U/L ALT 20 (0-35) U/L Alkaline Phosphatase 81 (38-126) U/L Troponin I 0.024 (0.000-0.033) ng/mL NT-Pro-B Natriuret Pep < 20.0 (<300) pg/mL Serum Total Protein 7.4 (6.3-8.2) g/dL Albumin 4.3 (3.5-5.0) g/dL Urine Color (Yellow) Urine Appearance (Clear) Urine pH (4.6-8.0) Ur Specific [place] (1.005-1.030) Urine Protein (Negative) Urine Glucose (UA) (Negative) mg/dL Urine Ketones (Negative) Urine Blood (Negative) Urine Nitrite (Negative) Urine Bilirubin (Negative) Urine Urobilinogen (0.2) mg/dL Ur Leukocyte Esterase (Negative) U Hyaline Cast (Auto) (0-2) /LPF Urine Microscopic RBC (0-5) /HPF Urine Microscopic WBC (0-5) /HPF Ur Epithelial Cells (None Seen) /HPF Urine Bacteria (None Seen) /HPF Urine Culture Reflexed (NO) Urine HCG, Qual NEGATIVE (NEGATIVE) 05/23/24 Range/Units 03:00 WBC 11.0 H (3.98-10.04) x10^3/uL RBC 5.22 (3.93-5.22) x10^6/uL Hgb 13.1 (11.2-15.7) g/dL Hct 41.9 (34.1-44.9) % MCV 80.3 (79.4-94.8) fL MCH 25.1 L (25.6-32.2) pg MCHC 31.3 L (32.2-35.5) g/dL RDW 15.0 H (11.7-14.4) % Plt Count 319 (182-369) x10^3/uL MPV 10.2 (9.4-12.3) fL Gran % 57.6 (34.0-71.1) % Immature Gran % (Auto) 0.3 (0.001-0.429) % Nucleat RBC Rel Count 0.0 (0.00-0.2) % Eos # (Auto) 0.50 H (0.04-0.36) x10^3/uL Immature Gran # (Auto) 0.03 (0.001-0.031) x10^3u/L Absolute Lymphs (auto) 3.47 (1.18-3.74) x10^3/uL Absolute Monos (auto) 0.58 (0.24-0.86) x10^3/uL Absolute Nucleated RBC 0.00 (0.00-0.012) x10^3u/L Lymphocytes % 31.6 (19.3-51.7) % Monocytes % 5.3 (4.7-12.5) % Eosinophils % 4.6 (0.7-5.8) % Basophils % 0.6 (0.1-1.2) % Absolute Granulocytes 6.32 H (1.56-6.13) x10^3/uL Basophils # 0.07 (0.01-0.08) x10^3/uL D-Dimer (0.0-0.50) mg/L Sodium (135-145) mmol/L Potassium (3.5-5.1) mmol/L Chloride (98-107) mmol/L Carbon Dioxide (22-30) mmol/L Anion Gap (5-15) MEQ/L BUN (7-17) mg/dL Creatinine (0.52-1.04) mg/dL Estimated GFR ML/MIN Glucose (74-106) mg/dL Calcium (8.4-10.2) mg/dL Total Bilirubin (0.2-1.3) mg/dL AST (14-36) U/L ALT (0-35) U/L Alkaline Phosphatase (38-126) U/L Troponin I (0.000-0.033) ng/mL NT-Pro-B Natriuret Pep (<300) pg/mL Serum Total Protein (6.3-8.2) g/dL Albumin (3.5-5.0) g/dL Urine Color (Yellow) Urine Appearance (Clear) Urine pH (4.6-8.0) Ur Specific [place] (1.005-1.030) Urine Protein (Negative) Urine Glucose (UA) (Negative) mg/dL Urine Ketones (Negative) Urine Blood (Negative) Urine Nitrite (Negative) Urine Bilirubin (Negative) Urine Urobilinogen (0.2) mg/dL Ur Leukocyte Esterase (Negative) U Hyaline Cast (Auto) (0-2) /LPF Urine Microscopic RBC (0-5) /HPF Urine Microscopic WBC (0-5) /HPF Ur Epithelial Cells (None Seen) /HPF Urine Bacteria (None Seen) /HPF Urine Culture Reflexed (NO) Urine HCG, Qual (NEGATIVE) - Progress Progress: improved Air Movement: good Progress Note: 39-year-old female presents to emergency department for evaluation of chest pain. Chest pain awoke her from her sleep. Cardiac troponin is 0.024. Second troponin 0.025. EKG sinus rhythm. Chest x-ray shows no acute findings. We administered a GI cocktail. Pain seem to have improved somewhat but did not resolve. In light of patient's troponin level, BMI of 48 and current smoker we decided to admit patient for further evaluation and treatment. Plan of care discussed with patient. She agrees to admission at [facility] for further evaluation and treatment. Case discussed with hospitalist who accepts admission to observation at 6:10 AM Patient voices no other complaints or concerns at this time. Portions of this note were created with voice recognition technology. There may be grammatical, spelling, punctuation or sound alike errors Complexity of problem addressed is moderate acute complicated. No critical care time. Complexity of data reviewed and analyzed is extensive. Test ordered chest reviewed results analyzed and correlated clinically with history and physical exam. Risk of complication and or risk of morbidity/mortality of patient management is high. Patient requires hospitalization for further evaluation and treatment. Vital stable. Time spent to admit patient is approximately 15 minutes. Plan of care established for shared decision making. No social determinants of health present to impede follow-up. 05/23/24 06:11 Blood Culture(s) Obtained: No Antibiotics given: No Counseled pt/family regarding: lab results, diagnosis, rad results - Departure Departure Disposition: Home Clinical Impression: Chest pain, ACS (acute coronary syndrome) Condition: Stable Critical Care Time: No Referrals: MERON CRUZ [Primary Care Provider] - Follow up/PCP as directed
[2024-05-23] MEDS ORDERED: MAALOX ES 30 ML UNIT DOSE ONE (04:42)
[2024-05-23] MEDS ORDERED: XYLOCAINE VISCOUS 2% 15 ML CUP ONE (04:42)
[2024-05-23] MEDS: GI COCKTAIL 45 ML (Maalox/Lidocaine) PO ONE (04:43)
[2024-05-23] MEDS ORDERED: BABY ASPIRIN 81 MG CHEW ONE (06:21)
[2024-05-23] MEDS: BABY ASPIRIN 81 MG CHEW PO ONE (06:22)
[2024-05-23] MEDS ORDERED: Zofran 4 MG/2 ML VIAL IV PRN (07:48)
--- NOTE | 2024-05-23 07:55 | PCM.HP ---
History of Present Illness - Chief Complaint Chief Complaint: Chest pain Date: 05/23/24 History of Present Illness: is a 39 year old female with PMHX of migraines, GERD, morbid obesity, daily smoker, and THC use. She presented to our ED last night for evaluation of chest pain. Patient reports that chest pain awoke her from her sleep. Pain described as an burning sensation that radiates into her back. Patient stated she felt as though there was a rock sitting in her chest. No trauma no fever. Patient states she has had this pain in the past however it had resolved spontaneously. Patient states the pain is now constant. No shortness of breath no nausea vomiting or diaphoresis. Patient rates her pain 6 out of 10. Patient voices no other complaints or concerns at this time. - Review of Systems Constitutional: No Fever, No Chills Eyes: No Symptoms Ears, Nose, & Throat: No Symptoms Respiratory: No Cough, No Short Of Breath Cardiac: Chest Pain, No Edema, No Syncope Abdominal/Gastrointestinal: No Abdominal Pain, No Nausea, No Vomiting, No Diarrhea Genitourinary Symptoms: No Dysuria Musculoskeletal: No Back Pain, No Neck Pain Skin: No Rash Neurological: No Dizziness, No Focal Weakness, No Sensory Changes Psychological: No Symptoms Endocrine: No Symptoms Hematologic/Lymphatic: No Symptoms Immunological/Allergic: No Symptoms Medications & Allergies Home Medications: Home Medication List No Reportable Medications [No Reported Medications] 05/23/24 [History Confirmed 05/23/24] Allergies/Adverse Reactions: Allergies Allergy/AdvReac Type Severity Reaction Status Date / Time sulfamethoxazole Allergy Verified 05/23/24 02:41 [From Bactrim] trimethoprim [From Bactrim] Allergy Verified 05/23/24 02:41 - Past Medical History Past Medical History: Yes (skin infections) Neurological History: Migraines ENT History: No Pertinent History Cardiac History: No Pertinent History Respiratory History: No Pertinent History Endocrine Medical History: No Pertinent History Musculoskelatal History: Fractures GI Medical History: GERD History: No Pertinent History Pyscho-Social History: No Pertinent History Reproductive Disorders: No Pertinent History Comment: recalled from previous admission - Female History Hx Last Menstrual Period: 3 weeks ago Are you now?: No - Past Surgical History Past Surgical History: Yes Neuro Surgical History: No Pertinent History Cardiac History: No Pertinent History Respiratory Surgery: No Pertinent History GI Surgical History: Appendectomy Genitourinary Surgical Hx: No Pertinent History Musculskeletal Surgical Hx: No Pertinent History Female Surgical History: Section, Tubal Ligation Other Surgical History: c- section x2 Significant Family History: no pertinent family hx - Social History Smoking Status: Current every day smoker How long have you smoked: 20 yrs Exposure to second hand smoke: Yes Alcohol: None Drug Use: marijuana - Social Determinants of Health Will the patient participate in the screening: Yes Do you worry about a steady place to live?: No Do you have any problems with any of the following?: No known problems In the past 12 months,have you had to go without utilities?: No Have you or anyone in your house had to go without enough: No Transportation Issues: No Has anyone in your support network made you feel unsafe?: No Does the patient want assistance with any of the above?: No - Physical Exam Vital Signs: Vital Signs - 24 hr Temp Pulse Pulse Resp BP BP Pulse Ox 05/23/24 06:55 97.3 F 79 18 116/76 95 05/23/24 06:42 97.3 F 79 18 116/76 95 05/23/24 06:18 97 05/23/24 06:00 90 20 117/82 95 05/23/24 05:30 76 21 117/70 95 05/23/24 05:00 86 25 H 124/79 95 05/23/24 04:30 73 25 H 138/90 96 05/23/24 04:01 93 H 10 L 153/130 97 05/23/24 03:30 91 H 19 129/83 97 05/23/24 03:25 90 18 96 05/23/24 03:10 98 05/23/24 03:01 95 H 21 119/89 96 05/23/24 02:47 88 16 138/90 97 05/23/24 02:42 97.6 F 86 86 14 138/90 98 General Appearance: no apparent distress, alert Neurologic Exam: alert, oriented x 3, cooperative, normal mood/affect, nml cerebellar function, nml station & gait, sensation nml, No motor deficits Eye Exam: PERRL/EOMI, eyes nml inspection Ears, Nose, Throat Exam: normal ENT inspection, TMs normal, pharynx normal, moist mucous membranes Neck Exam: normal inspection, non-tender, supple, full range of motion Respiratory Exam: normal breath sounds, lungs clear, No respiratory distress Cardiovascular Exam: regular rate/rhythm, normal heart sounds, normal peripheral pulses Gastrointestinal/Abdomen Exam: soft, normal bowel sounds, No tenderness, No mass Back Exam: normal inspection, normal range of motion, No CVA tenderness, No vertebral tenderness Extremity Exam: normal inspection, normal range of motion, pelvis stable Skin Exam: normal color, warm, dry, No rash Lymphatic Exam: No adenopathy Results - Labs Lab/Micro Results: Lab Results-Last 24 Hours 05/23/24 05/23/24 05/23/24 Range/Units 03:00 03:00 03:00 WBC 11.0 H (3.98-10.04) x10^3/uL RBC 5.22 (3.93-5.22) x10^6/uL Hgb 13.1 (11.2-15.7) g/dL Hct 41.9 (34.1-44.9) % MCV 80.3 (79.4-94.8) fL MCH 25.1 L (25.6-32.2) pg MCHC 31.3 L (32.2-35.5) g/dL RDW 15.0 H (11.7-14.4) % Plt Count 319 (182-369) x10^3/uL MPV 10.2 (9.4-12.3) fL Gran % 57.6 (34.0-71.1) % Immature Gran % (Auto) 0.3 (0.001-0.429) % Nucleat RBC Rel Count 0.0 (0.00-0.2) % Eos # (Auto) 0.50 H (0.04-0.36) x10^3/uL Immature Gran # (Auto) 0.03 (0.001-0.031) x10^3u/L Absolute Lymphs (auto) 3.47 (1.18-3.74) x10^3/uL Absolute Monos (auto) 0.58 (0.24-0.86) x10^3/uL Absolute Nucleated RBC 0.00 (0.00-0.012) x10^3u/L Lymphocytes % 31.6 (19.3-51.7) % Monocytes % 5.3 (4.7-12.5) % Eosinophils % 4.6 (0.7-5.8) % Basophils % 0.6 (0.1-1.2) % Absolute Granulocytes 6.32 H (1.56-6.13) x10^3/uL Basophils # 0.07 (0.01-0.08) x10^3/uL D-Dimer (0.0-0.50) mg/L Sodium 139 (135-145) mmol/L Potassium 4.0 (3.5-5.1) mmol/L Chloride 102 (98-107) mmol/L Carbon Dioxide 24 (22-30) mmol/L Anion Gap 15.7 H (5-15) MEQ/L BUN 13 (7-17) mg/dL Creatinine 0.59 (0.52-1.04) mg/dL Estimated GFR 119.0 ML/MIN Glucose 116 H (74-106) mg/dL Calcium 9.6 (8.4-10.2) mg/dL Total Bilirubin 0.90 (0.2-1.3) mg/dL AST 22 (14-36) U/L ALT 20 (0-35) U/L Alkaline Phosphatase 81 (38-126) U/L Troponin I 0.024 (0.000-0.033) ng/mL NT-Pro-B Natriuret Pep < 20.0 (<300) pg/mL Serum Total Protein 7.4 (6.3-8.2) g/dL Albumin 4.3 (3.5-5.0) g/dL Urine Color (Yellow) Urine Appearance (Clear) Urine pH (4.6-8.0) Ur Specific [place] (1.005-1.030) Urine Protein (Negative) Urine Glucose (UA) (Negative) mg/dL Urine Ketones (Negative) Urine Blood (Negative) Urine Nitrite (Negative) Urine Bilirubin (Negative) Urine Urobilinogen (0.2) mg/dL Ur Leukocyte Esterase (Negative) U Hyaline Cast (Auto) (0-2) /LPF Urine Microscopic RBC (0-5) /HPF Urine Microscopic WBC (0-5) /HPF Ur Epithelial Cells (None Seen) /HPF Urine Bacteria (None Seen) /HPF Urine Culture Reflexed (NO) Urine HCG, Qual (NEGATIVE) 05/23/24 05/23/24 05/23/24 Range/Units 03:00 03:00 03:24 WBC (3.98-10.04) x10^3/uL RBC (3.93-5.22) x10^6/uL Hgb (11.2-15.7) g/dL Hct (34.1-44.9) % MCV (79.4-94.8) fL MCH (25.6-32.2) pg MCHC (32.2-35.5) g/dL RDW (11.7-14.4) % Plt Count (182-369) x10^3/uL MPV (9.4-12.3) fL Gran % (34.0-71.1) % Immature Gran % (Auto) (0.001-0.429) % Nucleat RBC Rel Count (0.00-0.2) % Eos # (Auto) (0.04-0.36) x10^3/uL Immature Gran # (Auto) (0.001-0.031) x10^3u/L Absolute Lymphs (auto) (1.18-3.74) x10^3/uL Absolute Monos (auto) (0.24-0.86) x10^3/uL Absolute Nucleated RBC (0.00-0.012) x10^3u/L Lymphocytes % (19.3-51.7) % Monocytes % (4.7-12.5) % Eosinophils % (0.7-5.8) % Basophils % (0.1-1.2) % Absolute Granulocytes (1.56-6.13) x10^3/uL Basophils # (0.01-0.08) x10^3/uL D-Dimer 0.30 (0.0-0.50) mg/L Sodium (135-145) mmol/L Potassium (3.5-5.1) mmol/L Chloride (98-107) mmol/L Carbon Dioxide (22-30) mmol/L Anion Gap (5-15) MEQ/L BUN (7-17) mg/dL Creatinine (0.52-1.04) mg/dL Estimated GFR ML/MIN Glucose (74-106) mg/dL Calcium (8.4-10.2) mg/dL Total Bilirubin (0.2-1.3) mg/dL AST (14-36) U/L ALT (0-35) U/L Alkaline Phosphatase (38-126) U/L Troponin I (0.000-0.033) ng/mL NT-Pro-B Natriuret Pep (<300) pg/mL Serum Total Protein (6.3-8.2) g/dL Albumin (3.5-5.0) g/dL Urine Color Dark Yellow A (Yellow) Urine Appearance Cloudy A (Clear) Urine pH 5.0 (4.6-8.0) Ur Specific [place] >=1.030 A (1.005-1.030) Urine Protein 30 (Negative) Urine Glucose (UA) Negative (Negative) mg/dL Urine Ketones Negative (Negative) Urine Blood Trace (Negative) Urine Nitrite Negative (Negative) Urine Bilirubin Small A (Negative) Urine Urobilinogen 1.0 A (0.2) mg/dL Ur Leukocyte Esterase Negative (Negative) U Hyaline Cast (Auto) 3-5 A (0-2) /LPF Urine Microscopic RBC 3-5 (0-5) /HPF Urine Microscopic WBC 3-5 (0-5) /HPF Ur Epithelial Cells Moderate A (None Seen) /HPF Urine Bacteria Moderate A (None Seen) /HPF Urine Culture Reflexed YES (NO) Urine HCG, Qual NEGATIVE (NEGATIVE) 05/23/24 Range/Units 05:23 WBC (3.98-10.04) x10^3/uL RBC (3.93-5.22) x10^6/uL Hgb (11.2-15.7) g/dL Hct (34.1-44.9) % MCV (79.4-94.8) fL MCH (25.6-32.2) pg MCHC (32.2-35.5) g/dL RDW (11.7-14.4) % Plt Count (182-369) x10^3/uL MPV (9.4-12.3) fL Gran % (34.0-71.1) % Immature Gran % (Auto) (0.001-0.429) % Nucleat RBC Rel Count (0.00-0.2) % Eos # (Auto) (0.04-0.36) x10^3/uL Immature Gran # (Auto) (0.001-0.031) x10^3u/L Absolute Lymphs (auto) (1.18-3.74) x10^3/uL Absolute Monos (auto) (0.24-0.86) x10^3/uL Absolute Nucleated RBC (0.00-0.012) x10^3u/L Lymphocytes % (19.3-51.7) % Monocytes % (4.7-12.5) % Eosinophils % (0.7-5.8) % Basophils % (0.1-1.2) % Absolute Granulocytes (1.56-6.13) x10^3/uL Basophils # (0.01-0.08) x10^3/uL D-Dimer (0.0-0.50) mg/L Sodium (135-145) mmol/L Potassium (3.5-5.1) mmol/L Chloride (98-107) mmol/L Carbon Dioxide (22-30) mmol/L Anion Gap (5-15) MEQ/L BUN (7-17) mg/dL Creatinine (0.52-1.04) mg/dL Estimated GFR ML/MIN Glucose (74-106) mg/dL Calcium (8.4-10.2) mg/dL Total Bilirubin (0.2-1.3) mg/dL AST (14-36) U/L ALT (0-35) U/L Alkaline Phosphatase (38-126) U/L Troponin I 0.025 (0.000-0.033) ng/mL NT-Pro-B Natriuret Pep (<300) pg/mL Serum Total Protein (6.3-8.2) g/dL Albumin (3.5-5.0) g/dL Urine Color (Yellow) Urine Appearance (Clear) Urine pH (4.6-8.0) Ur Specific [place] (1.005-1.030) Urine Protein (Negative) Urine Glucose (UA) (Negative) mg/dL Urine Ketones (Negative) Urine Blood (Negative) Urine Nitrite (Negative) Urine Bilirubin (Negative) Urine Urobilinogen (0.2) mg/dL Ur Leukocyte Esterase (Negative) U Hyaline Cast (Auto) (0-2) /LPF Urine Microscopic RBC (0-5) /HPF Urine Microscopic WBC (0-5) /HPF Ur Epithelial Cells (None Seen) /HPF Urine Bacteria (None Seen) /HPF Urine Culture Reflexed (NO) Urine HCG, Qual (NEGATIVE) - Radiology Impressions Radiology Exams & Impressions: Radiology Procedures Category Date Time Status CHEST 1 VIEW (PORTABLE) Stat Exams 05/23/24 03:45 Taken Assessment/Plan (1) UTI (urinary tract infection) Current Visit: Yes Status: Acute Assessment & Plan: - ceftriaxone - UC pending - WBC 11 - CBC, CMP reviewed Code(s): N39.0 - URINARY TRACT INFECTION, SITE NOT SPECIFIED (2) Chest pain Current Visit: Yes Status: Acute Assessment & Plan: - Tele - Trop x2 negative- trend - EKG negative Code(s): R07.9 - CHEST PAIN, UNSPECIFIED (3) Smoker Current Visit: No Status: Chronic Assessment & Plan: - Advised cessation - Education provided for smoking cessation - Nicotine patch Code(s): F17.200 - NICOTINE DEPENDENCE, UNSPECIFIED, UNCOMPLICATED (4) Morbid obesity with BMI of 45.0-49.9, adult Current Visit: Yes Status: Chronic Assessment & Plan: - Advised diet and exercise control VTE: Lovenox PPI: Protonix D/C plan: 1-2 days Code status: Full Next of KIN: [place] [phone] Code(s): E66.01 - MORBID (SEVERE) OBESITY DUE TO EXCESS CALORIES; Z68.42 - BODY MASS INDEX [BMI] 45.0-49.9, ADULT
[2024-05-23] MEDS ORDERED: Sodium Chloride 0.9% 1000 ML 1,000 ML IV SCH (08:00)
--- NOTE | 2024-05-23 08:51 | XRAY ---
Indication: Pain. Comparison: December 30, 2021 Portable chest limited as both costophrenic angles not completely included. Remaining visualized lungs inflated and clear. Heart not enlarged. Bony thorax intact. Impression: Nonacute limited chest.
[2024-05-23] MEDS: Nicoderm CQ 21 MG TOP SCH (10:55)
[2024-05-23] MEDS: Protonix 20MG Tablet PO SCH (10:56)
[2024-05-23] MEDS: ROCEPHIN 1 GM / 100 ML NaCl 1 GM/100 ML IVPB IV SCH (10:56)
[2024-05-23] MEDS: TYLENOL 325 MG PO PRN (11:04)
[2024-05-23] MEDS: ENOXAPARIN SODIUM SQ SCH (11:08)
--- NOTE | 2024-05-23 11:51 | PCM.SSS ---
History of Present Illness - Chief Complaint Chief Complaint: Chest pain Date: 05/23/24 History of Present Illness: is a 39 year old female with PMHX of migraines, GERD, morbid obesity, daily smoker, and THC use. She presented to our ED last night for evaluation of chest pain. Patient reports that chest pain awoke her from her sleep. Pain described as an burning sensation that radiates into her back. Patient stated she felt as though there was a rock sitting in her chest. No trauma no fever. Patient states she has had this pain in the past however it had resolved spontaneously. Patient states the pain is gone. No shortness of breath no nausea vomiting or diaphoresis. Patient voices no other complaints or concerns at this time. UA + for UTI and may be pyelonephritis but she does not want a CT and wants to d/c home today as soon as possible. Will follow UC OP. Trops x3 negative. Will have pt f/u OP with PCP. - Review of Systems Constitutional: No Fever, No Chills Eyes: No Symptoms Ears, Nose, & Throat: No Symptoms Respiratory: No Cough, No Short Of Breath Cardiac: No Chest Pain, No Edema, No Syncope Abdominal/Gastrointestinal: No Abdominal Pain, No Nausea, No Vomiting, No D iarrhea Genitourinary Symptoms: Dysuria Musculoskeletal: Back Pain, No Neck Pain Skin: No Rash Neurological: No Dizziness, No Focal Weakness, No Sensory Changes Psychological: No Symptoms Endocrine: No Symptoms Hematologic/Lymphatic: No Symptoms Immunological/Allergic: No Symptoms Medications & Allergies Home Medications: Home Medication List levoFLOXacin [Levofloxacin] 750 mg PO DAILY 5 Days #5 tablet 05/23/24 [Rx] Allergies/Adverse Reactions: Allergies Allergy/AdvReac Type Severity Reaction Status Date / Time sulfamethoxazole Allergy Verified 05/23/24 02:41 [From Bactrim] trimethoprim [From Bactrim] Allergy Verified 05/23/24 02:41 - Past Medical History Past Medical History: Yes (skin infections) Neurological History: Migraines ENT History: No Pertinent History Cardiac History: No Pertinent History Respiratory History: No Pertinent History Endocrine Medical History: No Pertinent History Musculoskelatal History: Fractures GI Medical History: GERD History: No Pertinent History Pyscho-Social History: No Pertinent History Reproductive Disorders: No Pertinent History Comment: recalled from previous admission - Female History Hx Last Menstrual Period: 3 weeks ago Are you now?: No - Past Surgical History Past Surgical History: Yes Neuro Surgical History: No Pertinent History Cardiac History: No Pertinent History Respiratory Surgery: No Pertinent History GI Surgical History: Appendectomy Genitourinary Surgical Hx: No Pertinent History Musculskeletal Surgical Hx: No Pertinent History Female Surgical History: Section, Tubal Ligation Other Surgical History: c- section x2 Significant Family History: no pertinent family hx - Social History Smoking Status: Current every day smoker How long have you smoked: 20 yrs Exposure to second hand smoke: Yes Alcohol: None Drug Use: marijuana - Social Determinants of Health Will the patient participate in the screening: Yes Do you worry about a steady place to live?: No Do you have any problems with any of the following?: No known problems In the past 12 months,have you had to go without utilities?: No Have you or anyone in your house had to go without enough: No Transportation Issues: No Has anyone in your support network made you feel unsafe?: No Does the patient want assistance with any of the above?: No - Physical Exam Vital Signs: Vital Signs - 24 hr Temp Pulse Pulse Resp BP BP Pulse Ox 05/23/24 06:55 97.3 F 79 18 116/76 95 05/23/24 06:42 97.3 F 79 18 116/76 95 05/23/24 06:18 97 05/23/24 06:00 90 20 117/82 95 05/23/24 05:30 76 21 117/70 95 05/23/24 05:00 86 25 H 124/79 95 05/23/24 04:30 73 25 H 138/90 96 05/23/24 04:01 93 H 10 L 153/130 97 05/23/24 03:30 91 H 19 129/83 97 05/23/24 03:25 90 18 96 05/23/24 03:10 98 05/23/24 03:01 95 H 21 119/89 96 05/23/24 02:47 88 16 138/90 97 05/23/24 02:42 97.6 F 86 86 14 138/90 98 General Appearance: no apparent distress, alert, obese Neurologic Exam: alert, oriented x 3, cooperative, normal mood/affect, nml cerebellar function, nml station & gait, sensation nml, No motor deficits Eye Exam: PERRL/EOMI, eyes nml inspection Ears, Nose, Throat Exam: normal ENT inspection, TMs normal, pharynx normal, moist mucous membranes Neck Exam: normal inspection, non-tender, supple, full range of motion Respiratory Exam: normal breath sounds, lungs clear, No respiratory distress Cardiovascular Exam: regular rate/rhythm, normal heart sounds, normal peripheral pulses Gastrointestinal/Abdomen Exam: soft, normal bowel sounds, No tenderness, No mass Back Exam: normal inspection, normal range of motion, CVA tenderness (Right), No vertebral tenderness Extremity Exam: normal inspection, normal range of motion, pelvis stable Skin Exam: normal color, warm, dry, No rash Lymphatic Exam: No adenopathy Results - Labs Lab/Micro Results: Lab Results-Last 24 Hours 05/23/24 05/23/24 05/23/24 Range/Units 03:00 03:00 03:00 WBC 11.0 H (3.98-10.04) x10^3/uL RBC 5.22 (3.93-5.22) x10^6/uL Hgb 13.1 (11.2-15.7) g/dL Hct 41.9 (34.1-44.9) % MCV 80.3 (79.4-94.8) fL MCH 25.1 L (25.6-32.2) pg MCHC 31.3 L (32.2-35.5) g/dL RDW 15.0 H (11.7-14.4) % Plt Count 319 (182-369) x10^3/uL MPV 10.2 (9.4-12.3) fL Gran % 57.6 (34.0-71.1) % Immature Gran % (Auto) 0.3 (0.001-0.429) % Nucleat RBC Rel Count 0.0 (0.00-0.2) % Eos # (Auto) 0.50 H (0.04-0.36) x10^3/uL Immature Gran # (Auto) 0.03 (0.001-0.031) x10^3u/L Absolute Lymphs (auto) 3.47 (1.18-3.74) x10^3/uL Absolute Monos (auto) 0.58 (0.24-0.86) x10^3/uL Absolute Nucleated RBC 0.00 (0.00-0.012) x10^3u/L Lymphocytes % 31.6 (19.3-51.7) % Monocytes % 5.3 (4.7-12.5) % Eosinophils % 4.6 (0.7-5.8) % Basophils % 0.6 (0.1-1.2) % Absolute Granulocytes 6.32 H (1.56-6.13) x10^3/uL Basophils # 0.07 (0.01-0.08) x10^3/uL D-Dimer (0.0-0.50) mg/L Sodium 139 (135-145) mmol/L Potassium 4.0 (3.5-5.1) mmol/L Chloride 102 (98-107) mmol/L Carbon Dioxide 24 (22-30) mmol/L Anion Gap 15.7 H (5-15) MEQ/L BUN 13 (7-17) mg/dL Creatinine 0.59 (0.52-1.04) mg/dL Estimated GFR 119.0 ML/MIN Glucose 116 H (74-106) mg/dL Calcium 9.6 (8.4-10.2) mg/dL Total Bilirubin 0.90 (0.2-1.3) mg/dL AST 22 (14-36) U/L ALT 20 (0-35) U/L Alkaline Phosphatase 81 (38-126) U/L Troponin I 0.024 (0.000-0.033) ng/mL NT-Pro-B Natriuret Pep < 20.0 (<300) pg/mL Serum Total Protein 7.4 (6.3-8.2) g/dL Albumin 4.3 (3.5-5.0) g/dL Urine Color (Yellow) Urine Appearance (Clear) Urine pH (4.6-8.0) Ur Specific [place] (1.005-1.030) Urine Protein (Negative) Urine Glucose (UA) (Negative) mg/dL Urine Ketones (Negative) Urine Blood (Negative) Urine Nitrite (Negative) Urine Bilirubin (Negative) Urine Urobilinogen (0.2) mg/dL Ur Leukocyte Esterase (Negative) U Hyaline Cast (Auto) (0-2) /LPF Urine Microscopic RBC (0-5) /HPF Urine Microscopic WBC (0-5) /HPF Ur Epithelial Cells (None Seen) /HPF Urine Bacteria (None Seen) /HPF Urine Culture Reflexed (NO) Urine HCG, Qual (NEGATIVE) 05/23/24 05/23/24 05/23/24 Range/Units 03:00 03:00 03:24 WBC (3.98-10.04) x10^3/uL RBC (3.93-5.22) x10^6/uL Hgb (11.2-15.7) g/dL Hct (34.1-44.9) % MCV (79.4-94.8) fL MCH (25.6-32.2) pg MCHC (32.2-35.5) g/dL RDW (11.7-14.4) % Plt Count (182-369) x10^3/uL MPV (9.4-12.3) fL Gran % (34.0-71.1) % Immature Gran % (Auto) (0.001-0.429) % Nucleat RBC Rel Count (0.00-0.2) % Eos # (Auto) (0.04-0.36) x10^3/uL Immature Gran # (Auto) (0.001-0.031) x10^3u/L Absolute Lymphs (auto) (1.18-3.74) x10^3/uL Absolute Monos (auto) (0.24-0.86) x10^3/uL Absolute Nucleated RBC (0.00-0.012) x10^3u/L Lymphocytes % (19.3-51.7) % Monocytes % (4.7-12.5) % Eosinophils % (0.7-5.8) % Basophils % (0.1-1.2) % Absolute Granulocytes (1.56-6.13) x10^3/uL Basophils # (0.01-0.08) x10^3/uL D-Dimer 0.30 (0.0-0.50) mg/L Sodium (135-145) mmol/L Potassium (3.5-5.1) mmol/L Chloride (98-107) mmol/L Carbon Dioxide (22-30) mmol/L Anion Gap (5-15) MEQ/L BUN (7-17) mg/dL Creatinine (0.52-1.04) mg/dL Estimated GFR ML/MIN Glucose (74-106) mg/dL Calcium (8.4-10.2) mg/dL Total Bilirubin (0.2-1.3) mg/dL AST (14-36) U/L ALT (0-35) U/L Alkaline Phosphatase (38-126) U/L Troponin I (0.000-0.033) ng/mL NT-Pro-B Natriuret Pep (<300) pg/mL Serum Total Protein (6.3-8.2) g/dL Albumin (3.5-5.0) g/dL Urine Color Dark Yellow A (Yellow) Urine Appearance Cloudy A (Clear) Urine pH 5.0 (4.6-8.0) Ur Specific [place] >=1.030 A (1.005-1.030) Urine Protein 30 (Negative) Urine Glucose (UA) Negative (Negative) mg/dL Urine Ketones Negative (Negative) Urine Blood Trace (Negative) Urine Nitrite Negative (Negative) Urine Bilirubin Small A (Negative) Urine Urobilinogen 1.0 A (0.2) mg/dL Ur Leukocyte Esterase Negative (Negative) U Hyaline Cast (Auto) 3-5 A (0-2) /LPF Urine Microscopic RBC 3-5 (0-5) /HPF Urine Microscopic WBC 3-5 (0-5) /HPF Ur Epithelial Cells Moderate A (None Seen) /HPF Urine Bacteria Moderate A (None Seen) /HPF Urine Culture Reflexed YES (NO) Urine HCG, Qual NEGATIVE (NEGATIVE) 05/23/24 05/23/24 Range/Units 05:23 09:52 WBC (3.98-10.04) x10^3/uL RBC (3.93-5.22) x10^6/uL Hgb (11.2-15.7) g/dL Hct (34.1-44.9) % MCV (79.4-94.8) fL MCH (25.6-32.2) pg MCHC (32.2-35.5) g/dL RDW (11.7-14.4) % Plt Count (182-369) x10^3/uL MPV (9.4-12.3) fL Gran % (34.0-71.1) % Immature Gran % (Auto) (0.001-0.429) % Nucleat RBC Rel Count (0.00-0.2) % Eos # (Auto) (0.04-0.36) x10^3/uL Immature Gran # (Auto) (0.001-0.031) x10^3u/L Absolute Lymphs (auto) (1.18-3.74) x10^3/uL Absolute Monos (auto) (0.24-0.86) x10^3/uL Absolute Nucleated RBC (0.00-0.012) x10^3u/L Lymphocytes % (19.3-51.7) % Monocytes % (4.7-12.5) % Eosinophils % (0.7-5.8) % Basophils % (0.1-1.2) % Absolute Granulocytes (1.56-6.13) x10^3/uL Basophils # (0.01-0.08) x10^3/uL D-Dimer (0.0-0.50) mg/L Sodium (135-145) mmol/L Potassium (3.5-5.1) mmol/L Chloride (98-107) mmol/L Carbon Dioxide (22-30) mmol/L Anion Gap (5-15) MEQ/L BUN (7-17) mg/dL Creatinine (0.52-1.04) mg/dL Estimated GFR ML/MIN Glucose (74-106) mg/dL Calcium (8.4-10.2) mg/dL Total Bilirubin (0.2-1.3) mg/dL AST (14-36) U/L ALT (0-35) U/L Alkaline Phosphatase (38-126) U/L Troponin I 0.025 0.024 (0.000-0.033) ng/mL NT-Pro-B Natriuret Pep (<300) pg/mL Serum Total Protein (6.3-8.2) g/dL Albumin (3.5-5.0) g/dL Urine Color (Yellow) Urine Appearance (Clear) Urine pH (4.6-8.0) Ur Specific [place] (1.005-1.030) Urine Protein (Negative) Urine Glucose (UA) (Negative) mg/dL Urine Ketones (Negative) Urine Blood (Negative) Urine Nitrite (Negative) Urine Bilirubin (Negative) Urine Urobilinogen (0.2) mg/dL Ur Leukocyte Esterase (Negative) U Hyaline Cast (Auto) (0-2) /LPF Urine Microscopic RBC (0-5) /HPF Urine Microscopic WBC (0-5) /HPF Ur Epithelial Cells (None Seen) /HPF Urine Bacteria (None Seen) /HPF Urine Culture Reflexed (NO) Urine HCG, Qual (NEGATIVE) - Radiology Impressions Radiology Exams & Impressions: Radiology Procedures Category Date Time Status CHEST 1 VIEW (PORTABLE) Stat Exams 05/23/24 03:45 Completed Assessment/Plan (1) UTI (urinary tract infection) Current Visit: Yes Status: Acute Assessment & Plan: - ceftriaxone - Since she has right CVA tenderness will treat with levaquin daily for 5 days for possible pyelonephritis - Pt refused CT abd and wants to d/c today. - WBC 11 - CBC, CMP reviewed - Will follow UC OP - encourage oral hydration Code(s): N39.0 - URINARY TRACT INFECTION, SITE NOT SPECIFIED (2) Chest pain Current Visit: Yes Status: Resolved Assessment & Plan: - Resolved since admission - Trop x3 negative - Tele - EKG negative - CXR negative Code(s): R07.9 - CHEST PAIN, UNSPECIFIED (3) Smoker Current Visit: No Status: Chronic Assessment & Plan: - advised cessation - nicotine patch Code(s): F17.200 - NICOTINE DEPENDENCE, UNSPECIFIED, UNCOMPLICATED (4) Morbid obesity with BMI of 45.0-49.9, adult Current Visit: Yes Status: Chronic Assessment & Plan: - advised diet and exercise control Code(s): E66.01 - MORBID (SEVERE) OBESITY DUE TO EXCESS CALORIES; Z68.42 - BODY MASS INDEX [BMI] 45.0-49.9, ADULT Hospital Summary - Hospital Course Hospital Course: is a 39 year old female with PMHX of migraines, GERD, morbid obesity, daily smoker, and THC use. She presented to our ED last night for evaluation of chest pain. Patient reports that chest pain awoke her from her sleep. Pain described as an burning sensation that radiates into her back. Patient stated she felt as though there was a rock sitting in her chest. No trauma no fever. Patient states she has had this pain in the past however it had resolved spontaneously. Patient states the pain is gone. No shortness of breath no nausea vomiting or diaphoresis. Patient voices no other complaints or concerns at this time. UA + for UTI and may be pyelonephritis but she does not want a CT and wants to d/c home today as soon as possible. Will follow UC OP. Trops x3 negative. Will have pt f/u OP with PCP. - Vitals & Intake/Output Vital Signs: Vital Signs Temperature 97.3 F 05/23/24 06:55 Pulse Rate 79 05/23/24 06:55 Respiratory Rate 18 05/23/24 06:55 Blood Pressure 116/76 05/23/24 06:55 O2 Sat by Pulse Oximetry 95 05/23/24 06:55 Intake & Output: Intake & Output 05/20/24 05/21/24 05/22/24 05/23/24 11:59 11:59 11:59 11:59 Intake Total 450 Balance 450 Weight 141.5 kg - Lab Result Diagrams: 05/23/24 03:00 05/23/24 03:00 Lab Results-Last 24 Hrs: Lab Results-Last 24 Hours 05/23/24 05/23/24 05/23/24 Range/Units 03:00 03:00 03:00 WBC 11.0 H (3.98-10.04) x10^3/uL RBC 5.22 (3.93-5.22) x10^6/uL Hgb 13.1 (11.2-15.7) g/dL Hct 41.9 (34.1-44.9) % MCV 80.3 (79.4-94.8) fL MCH 25.1 L (25.6-32.2) pg MCHC 31.3 L (32.2-35.5) g/dL RDW 15.0 H (11.7-14.4) % Plt Count 319 (182-369) x10^3/uL MPV 10.2 (9.4-12.3) fL Gran % 57.6 (34.0-71.1) % Immature Gran % (Auto) 0.3 (0.001-0.429) % Nucleat RBC Rel Count 0.0 (0.00-0.2) % Eos # (Auto) 0.50 H (0.04-0.36) x10^3/uL Immature Gran # (Auto) 0.03 (0.001-0.031) x10^3u/L Absolute Lymphs (auto) 3.47 (1.18-3.74) x10^3/uL Absolute Monos (auto) 0.58 (0.24-0.86) x10^3/uL Absolute Nucleated RBC 0.00 (0.00-0.012) x10^3u/L Lymphocytes % 31.6 (19.3-51.7) % Monocytes % 5.3 (4.7-12.5) % Eosinophils % 4.6 (0.7-5.8) % Basophils % 0.6 (0.1-1.2) % Absolute Granulocytes 6.32 H (1.56-6.13) x10^3/uL Basophils # 0.07 (0.01-0.08) x10^3/uL D-Dimer (0.0-0.50) mg/L Sodium 139 (135-145) mmol/L Potassium 4.0 (3.5-5.1) mmol/L Chloride 102 (98-107) mmol/L Carbon Dioxide 24 (22-30) mmol/L Anion Gap 15.7 H (5-15) MEQ/L BUN 13 (7-17) mg/dL Creatinine 0.59 (0.52-1.04) mg/dL Estimated GFR 119.0 ML/MIN Glucose 116 H (74-106) mg/dL Calcium 9.6 (8.4-10.2) mg/dL Total Bilirubin 0.90 (0.2-1.3) mg/dL AST 22 (14-36) U/L ALT 20 (0-35) U/L Alkaline Phosphatase 81 (38-126) U/L Troponin I 0.024 (0.000-0.033) ng/mL NT-Pro-B Natriuret Pep < 20.0 (<300) pg/mL Serum Total Protein 7.4 (6.3-8.2) g/dL Albumin 4.3 (3.5-5.0) g/dL Urine Color (Yellow) Urine Appearance (Clear) Urine pH (4.6-8.0) Ur Specific [place] (1.005-1.030) Urine Protein (Negative) Urine Glucose (UA) (Negative) mg/dL Urine Ketones (Negative) Urine Blood (Negative) Urine Nitrite (Negative) Urine Bilirubin (Negative) Urine Urobilinogen (0.2) mg/dL Ur Leukocyte Esterase (Negative) U Hyaline Cast (Auto) (0-2) /LPF Urine Microscopic RBC (0-5) /HPF Urine Microscopic WBC (0-5) /HPF Ur Epithelial Cells (None Seen) /HPF Urine Bacteria (None Seen) /HPF Urine Culture Reflexed (NO) Urine HCG, Qual (NEGATIVE) 05/23/24 05/23/24 05/23/24 Range/Units 03:00 03:00 03:24 WBC (3.98-10.04) x10^3/uL RBC (3.93-5.22) x10^6/uL Hgb (11.2-15.7) g/dL Hct (34.1-44.9) % MCV (79.4-94.8) fL MCH (25.6-32.2) pg MCHC (32.2-35.5) g/dL RDW (11.7-14.4) % Plt Count (182-369) x10^3/uL MPV (9.4-12.3) fL Gran % (34.0-71.1) % Immature Gran % (Auto) (0.001-0.429) % Nucleat RBC Rel Count (0.00-0.2) % Eos # (Auto) (0.04-0.36) x10^3/uL Immature Gran # (Auto) (0.001-0.031) x10^3u/L Absolute Lymphs (auto) (1.18-3.74) x10^3/uL Absolute Monos (auto) (0.24-0.86) x10^3/uL Absolute Nucleated RBC (0.00-0.012) x10^3u/L Lymphocytes % (19.3-51.7) % Monocytes % (4.7-12.5) % Eosinophils % (0.7-5.8) % Basophils % (0.1-1.2) % Absolute Granulocytes (1.56-6.13) x10^3/uL Basophils # (0.01-0.08) x10^3/uL D-Dimer 0.30 (0.0-0.50) mg/L Sodium (135-145) mmol/L Potassium (3.5-5.1) mmol/L Chloride (98-107) mmol/L Carbon Dioxide (22-30) mmol/L Anion Gap (5-15) MEQ/L BUN (7-17) mg/dL Creatinine (0.52-1.04) mg/dL Estimated GFR ML/MIN Glucose (74-106) mg/dL Calcium (8.4-10.2) mg/dL Total Bilirubin (0.2-1.3) mg/dL AST (14-36) U/L ALT (0-35) U/L Alkaline Phosphatase (38-126) U/L Troponin I (0.000-0.033) ng/mL NT-Pro-B Natriuret Pep (<300) pg/mL Serum Total Protein (6.3-8.2) g/dL Albumin (3.5-5.0) g/dL Urine Color Dark Yellow A (Yellow) Urine Appearance Cloudy A (Clear) Urine pH 5.0 (4.6-8.0) Ur Specific [place] >=1.030 A (1.005-1.030) Urine Protein 30 (Negative) Urine Glucose (UA) Negative (Negative) mg/dL Urine Ketones Negative (Negative) Urine Blood Trace (Negative) Urine Nitrite Negative (Negative) Urine Bilirubin Small A (Negative) Urine Urobilinogen 1.0 A (0.2) mg/dL Ur Leukocyte Esterase Negative (Negative) U Hyaline Cast (Auto) 3-5 A (0-2) /LPF Urine Microscopic RBC 3-5 (0-5) /HPF Urine Microscopic WBC 3-5 (0-5) /HPF Ur Epithelial Cells Moderate A (None Seen) /HPF Urine Bacteria Moderate A (None Seen) /HPF Urine Culture Reflexed YES (NO) Urine HCG, Qual NEGATIVE (NEGATIVE) 05/23/24 05/23/24 Range/Units 05:23 09:52 WBC (3.98-10.04) x10^3/uL RBC (3.93-5.22) x10^6/uL Hgb (11.2-15.7) g/dL Hct (34.1-44.9) % MCV (79.4-94.8) fL MCH (25.6-32.2) pg MCHC (32.2-35.5) g/dL RDW (11.7-14.4) % Plt Count (182-369) x10^3/uL MPV (9.4-12.3) fL Gran % (34.0-71.1) % Immature Gran % (Auto) (0.001-0.429) % Nucleat RBC Rel Count (0.00-0.2) % Eos # (Auto) (0.04-0.36) x10^3/uL Immature Gran # (Auto) (0.001-0.031) x10^3u/L Absolute Lymphs (auto) (1.18-3.74) x10^3/uL Absolute Monos (auto) (0.24-0.86) x10^3/uL Absolute Nucleated RBC (0.00-0.012) x10^3u/L Lymphocytes % (19.3-51.7) % Monocytes % (4.7-12.5) % Eosinophils % (0.7-5.8) % Basophils % (0.1-1.2) % Absolute Granulocytes (1.56-6.13) x10^3/uL Basophils # (0.01-0.08) x10^3/uL D-Dimer (0.0-0.50) mg/L Sodium (135-145) mmol/L Potassium (3.5-5.1) mmol/L Chloride (98-107) mmol/L Carbon Dioxide (22-30) mmol/L Anion Gap (5-15) MEQ/L BUN (7-17) mg/dL Creatinine (0.52-1.04) mg/dL Estimated GFR ML/MIN Glucose (74-106) mg/dL Calcium (8.4-10.2) mg/dL Total Bilirubin (0.2-1.3) mg/dL AST (14-36) U/L ALT (0-35) U/L Alkaline Phosphatase (38-126) U/L Troponin I 0.025 0.024 (0.000-0.033) ng/mL NT-Pro-B Natriuret Pep (<300) pg/mL Serum Total Protein (6.3-8.2) g/dL Albumin (3.5-5.0) g/dL Urine Color (Yellow) Urine Appearance (Clear) Urine pH (4.6-8.0) Ur Specific [place] (1.005-1.030) Urine Protein (Negative) Urine Glucose (UA) (Negative) mg/dL Urine Ketones (Negative) Urine Blood (Negative) Urine Nitrite (Negative) Urine Bilirubin (Negative) Urine Urobilinogen (0.2) mg/dL Ur Leukocyte Esterase (Negative) U Hyaline Cast (Auto) (0-2) /LPF Urine Microscopic RBC (0-5) /HPF Urine Microscopic WBC (0-5) /HPF Ur Epithelial Cells (None Seen) /HPF Urine Bacteria (None Seen) /HPF Urine Culture Reflexed (NO) Urine HCG, Qual (NEGATIVE) - Radiology Exams Ordered Rad Exams-Entire Visit: Radiology Procedures Category Date Time Status CHEST 1 VIEW (PORTABLE) Stat Exams 05/23/24 03:45 Completed - Procedures and Test Procedures and Tests throughout Hospitalization: Therapy Orders & Screens 05/23/24 07:38 Smoking Cessation Education ONCE Comment: Diagnosis: Chest pain Smoking Status: Current every day smoker How long have you smoked: 20 yrs Have you smoked in the past 12 months: Yes Approximately how many cigarettes per day: 1 pack per day Do you dip or chew tobacco: No - Discharge Discharge Date: 05/23/24 Disposition: Home, Self-Care Condition: Stable Prescriptions: No Action No Reportable Medications [No Reported Medications] Follow up with: MERON CRUZ [Primary Care Provider] - 05/30/24 9:45 am
[2024-05-23 11:57] VITALS: BP 127/81; PULSE 80; RESP 20; TEMP 96.9; O2SAT 96
== END 2024-05-23 12:30 | disposition home or self-care (01) ==
LOC: ED 02:37 → MED SURG 06:42
PROVIDERS: ADMIT Internal Medicine; ATTEND Internal Medicine
DX: N39.0 Urinary tract infection, site not specified (principal); R07.9 Chest pain, unspecified; K21.9 Gastro-esophageal reflux disease without esophagitis; F17.200 Nicotine dependence, unspecified, uncomplicated; E66.01 Morbid (severe) obesity due to excess calories; Z68.42 Body mass index [BMI] 45.0-49.9, adult
CPT/HCPCS: 36415; 71045; 80053; 81001; 81025; 83880; 84484; 85025; 85379; 87086; 93005; 93041; 93268; 94760; 96374; 99285; G0379; J0696; J2270; J2405; Q3014; A9270-GY; G0378